=== PATIENT | male | born 1945 ===

== ENCOUNTER 2017-04-15 13:31 | Emergency (ER) | payer MEDICARE ==
[2017-04-15 14:35] VITALS: RESP 20; TEMP 97.4
--- NOTE | 2017-04-15 15:33 | C.PDOC ---
History Of Present Illness NEAR SYNCOPE VS VERTIGO-LIKE DIZZY X 2 WEEKS. WORSE WHEN MOVES FROM OUT OF BED TO STANDING. SAW PMD FOR SAME LAST WEEK, ADVISED "NOT TO GET UP SO FAST". SAW OPERATIONS MANAGER THIS WEEK, ADVISED TO DC NORVASC. COMPLIANT W DEMADEX, TOPROL. "HE SAID MY BP WAS LOWER THAN USUAL", PS DOESNT KNOW BASELINE BP. ALSO CO NEED TO HAVE BM IMMEDIATELY AFTER EATING X 2 WEEKS. NO DIARRHEA. NO ASSOC ABD PAIN, NV, WT LOSS EXAM NAD HEENT NO NYSTAGMUS ABD NEG GAIT STEADY TANDEM WALK. NEURO NO FOCAL DEF NO INDUCIBLE VERTIGO OR DIZZINESS W POSITION CHANGE CV RRR REMAINDER NEG Time Seen by Provider: 04/15/17 15:07 Chief Complaint (Nursing): Dizziness/Lightheaded History Per: Patient History/Exam Limitations: no limitations Onset/Duration Of Symptoms: Days Current Symptoms Are (Timing): Still Present Severity: Moderate Past Medical History Reviewed: Historical Data, Nursing Documentation, Vital Signs Vital Signs: Last Vital Signs Temp 97.4 F L 04/15/17 14:29 Pulse 73 04/15/17 14:29 Resp 20 04/15/17 14:29 BP 137/71 04/15/17 14:29 Pulse Ox 99 04/15/17 18:14 - Medical History PMH: Arthritis (right knee), Diabetes, Gastritis, HTN, Hypercholesterolemia, Chronic Kidney Disease Other Surgeries: Hx of surgeries - [facility] Procedures OTHER SKIN & SUBQ I D (11/21/13) Family History: States: No Known Family Hx - Social History Hx Tobacco Use: No Hx Alcohol Use: Yes Hx Substance Use: No - Immunization History Hx Tetanus Toxoid Vaccination: No Hx Influenza Vaccination: No Hx Pneumococcal Vaccination: Yes Review Of Systems Except As Marked, All Systems Reviewed And Found Negative. Constitutional: Negative for: Weight loss Gastrointestinal: Negative for: Nausea, Vomiting, Abdominal Pain, Diarrhea Neurological: Positive for: Dizziness Physical Exam - Physical Exam Appears: Non-toxic, No Acute Distress Skin: Normal Color, Warm Head: Atraumatic, Normacephalic Eye(s): bilateral: Normal Inspection, Other (no nystagmus) Cardiovascular: Other (RRR) Gastrointestinal/Abdominal: Normal Exam, Soft, No Tenderness, No Guarding, No Rebound Neurological/Psych: Other (no focal deficits, no inducible vertigo or dizziness with position change) Gait: Steady (tandem walk) ED Course And Treatment - Laboratory Results Result Diagrams: 04/15/17 16:43 04/15/17 16:43 O2 Sat by Pulse Oximetry: 99 (RA) Pulse Ox Interpretation: Normal - Radiology CXR: Interpreted by Me CXR Interpretation: Yes: No Acute Disease - CT Scan/US Head CT Other Rad Studies (CT/US): Read By Radiologist CT/US Interpretation: PROCEDURE: CT HEAD WITHOUT CONTRAST. HISTORY: DIZZY. COMPARISON: None available. TECHNIQUE: Axial computed tomography images were obtained through the head/brain without intravenous contrast. Radiation dose: Total exam DLP = 800.40 mGy-cm. This CT exam was performed using one or more of the following dose reduction techniques: Automated exposure control, adjustment of the mA and/or kV according to patient size, and/or use of iterative reconstruction technique. FINDINGS: HEMORRHAGE: No intracranial hemorrhage. BRAIN: Diffuse atrophy with prominence of the ventricles and sulci noted. No mass effect or edema. Intracranial atherosclerosis. Intracranial atherosclerosis. The knight-white matter differentiation appears intact. Please note that MRI with diffusion imaging is more sensitive in the detection of acute ischemic event. VENTRICLES: No hydrocephalus. CALVARIUM: Unremarkable. PARANASAL SINUSES: Unremarkable as visualized. No significant inflammatory changes. MASTOID AIR CELLS: Unremarkable as visualized. No inflammatory changes. OTHER FINDINGS: None. IMPRESSION: No acute intracranial pathology identified. Findings as above. Progress - Re-Evaluation Re-evaluation Note: 04/15/17 18:06 APPEARS COMFORTABLE NAD. PS WAS PREVIOUSLY ADVISED "MY KIDNEY NUMBERS ARE HIGH" . UNK PRIOR RESULT. ADVISED NEED TO DRINK 1-2 L WATER DAILY. AGREES W DC PLAN, DC HOME. 04/15/17 18:14 - Data Reviewed Data Reviewed: Lab, Diagnostic imaging, EKG, Old records Medical Decision Making Medical Decision Making: Plan: --Labs --UA --CXR --CT-Head Disposition Counseled Patient/Family Regarding: Studies Performed, Diagnosis, Need For Followup, Rx Given - Disposition Referrals: YOUR,PMD [Other] Disposition: HOME/ ROUTINE Disposition Time: 18:07 Condition: IMPROVED Prescriptions: Meclizine [Antivert] 50 mg PO Q6 #20 tab Instructions: Vertigo (a Type of Dizziness), Dehydration, Adult (DC) Forms: [employer] ([place] Citizen) - Clinical Impression Clinical Impression: Dizziness, Renal insufficiency - Scribe Statement The provider has reviewed the documentation as recorded by the Scribe Judy Walter Provider Attestation: All medical record entries made by the Scribe were at my direction and personally dictated by me. I have reviewed the chart and agree that the record accurately reflects my personal performance of the history, physical exam, medical decision making, and the department course for this patient. I have also personally directed, reviewed, and agree with the discharge instructions and disposition.
[2017-04-15 16:50] LABS: BASO # 0.1 K/uL (0.0-0.2); BASO % 0.6 % (0.0-2.0); EOS # 0.2 K/uL (0.0-0.7); EOS % 2.4 % (0.0-4.0); HEMOGLOBIN 13.6 g/dL (12.0-18.0); LYMPH # 1.6 K/uL (1.0-4.3); LYMPH % 15.4 % (20.0-40.0); MEAN CELL VOLUME 92.1 fL (80.0-94.0); MEAN CORPUSCULAR HEMOGLOBIN 31.5 pg (27.0-31.0); MEAN CORPUSCULAR HGB CONC 34.2 g/dL (33.0-37.0); MEAN PLATELET VOLUME 11.1 fL (7.2-11.7); MONO # 0.5 K/uL (0.0-0.8); MONO % 5.3 % (0.0-10.0); NEUT # 7.8 K/uL (1.8-7.0); NEUT % 76.3 % (50.0-75.0); NRBC % 0.1 % (0.0-2.0); RBC 4.33 Mil/uL (4.40-5.90); WHITE BLOOD COUNT 10.2 K/uL (4.8-10.8)
[2017-04-15 17:01] LABS: CALCIUM 9.4 mg/dl (8.6-10.4)
[2017-04-15 17:40] LABS: URINE BACTERIA RARE (<OCC); URINE BILIRUBIN NEGATIVE (NEGATIVE); URINE BLOOD NEGATIVE (NEGATIVE); URINE CLARITY Clear (Clear); URINE COLOR Straw (YELLOW); URINE GLUCOSE (UA) NORMAL (Normal); URINE LEUKOCYTE ESTERASE NEG Leu/uL (Negative); URINE NITRATE NEGATIVE (NEGATIVE); URINE PROTEIN 1+ mg/dL (NEGATIVE); URINE UROBILINOGEN NORMAL mg/dL (0.2-1.0)
--- NOTE | 2017-04-15 17:51 | CT ---
PROCEDURE: CT HEAD WITHOUT CONTRAST. HISTORY: DIZZY COMPARISON: None available. TECHNIQUE: Axial computed tomography images were obtained through the head/brain without intravenous contrast. Radiation dose: Total exam DLP = 800.40 mGy-cm. This CT exam was performed using one or more of the following dose reduction techniques: Automated exposure control, adjustment of the mA and/or kV according to patient size, and/or use of iterative reconstruction technique. FINDINGS: HEMORRHAGE: No intracranial hemorrhage. BRAIN: Diffuse atrophy with prominence of the ventricles and sulci noted. No mass effect or edema. Intracranial atherosclerosis. Intracranial atherosclerosis. The knight-white matter differentiation appears intact. Please note that MRI with diffusion imaging is more sensitive in the detection of acute ischemic event. VENTRICLES: No hydrocephalus. CALVARIUM: Unremarkable. PARANASAL SINUSES: Unremarkable as visualized. No significant inflammatory changes. MASTOID AIR CELLS: Unremarkable as visualized. No inflammatory changes. OTHER FINDINGS: None. IMPRESSION: No acute intracranial pathology identified. Findings as above.
[2017-04-15] MEDS ORDERED: Sodium Chloride 0.9% 500 ML IV ONE ×2 (18:14→18:17)
[2017-04-15 18:47] VITALS: BP 160/89; PULSE 71; O2SAT 100
--- NOTE | 2017-04-16 23:16 | CARD ---
APPROVED REPORT EKG Measurement Heart [id number] KS [id number] <Conclusion> Normal sinus rhythm Normal ECG
== END 2017-04-15 18:52 | disposition home or self-care (01) ==
LOC: C.ER 13:31
DX: R42 Dizziness and giddiness (principal); N28.9 Disorder of kidney and ureter, unspecified
CPT/HCPCS: 70450; 71046; 80048; 81001; 85025; 93005; 99285; J7040

== ENCOUNTER 2017-08-03 07:12 | Day surgery (SDC) | payer MEDICARE ==
[2017-07-29 12:16] VITALS: BMI 32.5
[2017-08-03] MEDS ORDERED: EPINEPHrine 1:1000 Nasal Sol(30mL) ONE (07:18)
[2017-08-03] MEDS ORDERED: Lidocaine/Epinephrine 1% 1:100000 10 ML IJ ONE (07:18)
[2017-08-03] MEDS ORDERED: ceFAZolin 1 gm in NS 1 GM/100 ML BAG IVPB ONE (07:19)
[2017-08-03] MEDS ORDERED: Propofol 10 mg/ml Inj (20 ML) ONE (08:33)
[2017-08-03] MEDS ORDERED: Midazolam 2 MG/2 ML VIAL ONE (08:34)
[2017-08-03] MEDS ORDERED: Lactated Ringer's 1,000 ML IV ONE (08:35)
[2017-08-03] MEDS ORDERED: Rocuronium 10 mg/ml (5 ml) ONE (09:44)
[2017-08-03] MEDS ORDERED: Neostigmine Methylsulfate 3mg/3ml Syringe IV ONE (09:44)
[2017-08-03] MEDS ORDERED: HYDROmorphone 0.5 mg/0.5 ml ISec IVP PRN (10:03)
[2017-08-03] MEDS ORDERED: Acetaminophen-Codeine 300/30 mg Tab PO PRN (10:41)
[2017-08-03] MEDS ORDERED: Dextrose 5%/0.45% NS 1,000 ML IV SCH (10:45)
[2017-08-03 12:01] VITALS: BP 125/64; PULSE 84; RESP 20; TEMP 97.8; O2SAT 97
--- NOTE | 2017-08-03 20:48 | OP ---
PROCEDURE DATE: 08/03/2017 PREOPERATIVE DIAGNOSIS: Sinusitis, enlarged turbinates. POSTOPERATIVE DIAGNOSIS: Sinusitis, enlarged turbinates. PROCEDURE: Endoscopic bilateral maxillary antrostomy, endoscopic bilateral ethmoidectomy, endoscopic bilateral inferior turbinate reduction, endoscopic right frontal sinusotomy. SIGNIFICANT FINDINGS: Sinusitis, changes in the ethmoid sinuses, the maxillary antrum stenosed on both sides, the frontal recess stenosed on both sides. DESCRIPTION OF PROCEDURE: The patient was brought into the room, placed in the supine position. Anesthesia was initiated through an ET tube. Adrenaline-soaked pledgets were inserted into the nasal cavity, remained there for at least 5 minutes and removed. A zero degree scope was inserted into the nasal cavity. The inferior turbinates were noted to be enlarged. They were reduced in size to confirm an inferior to superior, anterior to posterior direction on both sides, first on the left, then on the right. Bleeding was controlled using suction cautery on both sides. Attention was turned to the left. The middle turbinate was injected with lidocaine with epinephrine. At that point, navigation was set up and used throughout the case in order to ensure that the skull base and orbit were not entered. The middle turbinate was medialized. The uncinate process was medialized and removed. The ethmoid bulla was entered inferomedially going posteriorly to the basal lamella, then anteriorly and superiorly until the ethmoid bulla was removed. The basal lamella was entered, posterior ethmoid cells were entered and opened. The skull base was identified and followed anteriorly all the way to the area of the anterior ethmoid air cells. Curved suction hooked up to navigation was used to locate the maxillary antrum, which was noted to be stenosed and opened using forceps. Bleeding was controlled using suction cautery and adrenaline-soaked pledgets . Attention was turned to the other side. The middle turbinate was injected with lidocaine with epinephrine and medialized. The uncinate process was medialized using a freer elevator and removed using forceps. A debrider was used to enter the ethmoid bulla inferomedially going posteriorly to the basal lamella then anteriorly and superiorly until the ethmoid bulla was removed. The basal lamella was entered. Posterior ethmoid cells were entered and opened. Skull base was identified and followed anteriorly all the way to the area of the anterior ethmoid air cells. The frontal recess was noted to be stenosed and opened using forceps. The curved suction hooked up to navigation was used to locate the maxillary antrum, which was noted to be stenosed and opened using forceps. Bleeding was controlled using suction cautery and adrenaline-soaked pledgets. Splints were placed. The patient was taken off anesthesia and taken to the recovery room in a stable manner. Rogerio Ring MD
== END 2017-08-03 13:00 | disposition home or self-care (01) ==
LOC: C.SDS 07:12
PROVIDERS: ATTEND Otolaryngology
DX: J34.3 Hypertrophy of nasal turbinates (principal); J32.0 Chronic maxillary sinusitis; J32.1 Chronic frontal sinusitis; J32.2 Chronic ethmoidal sinusitis
CPT/HCPCS: 30802; 31254; 31256; 31276; 82948; 88304; J0690; J2001; J2250; J2405; J2704; J2710; J3010; J7120

== ENCOUNTER 2017-08-20 20:48 | Emergency (ER) | payer MEDICARE ==
[2017-08-20 20:49] VITALS: BMI 32.5
[2017-08-20 21:14] VITALS: RESP 20
--- NOTE | 2017-08-20 22:22 | C.PDOC ---
History Of Present Illness 72 year old male presents to the ED for evaluation of a nosebleed. Patient was seen at an outside Hospital for the same presentation yesterday. Patient is persistently clutching at his nose, rubbing it with scant bleeding observed. Patient denies fever, chills, headache, injury, fall, trauma, blurry vision, nausea, vomit, weakness, numbness. Time Seen by Provider: 08/20/17 21:12 Chief Complaint (Nursing): ENT Problem History Per: Patient History/Exam Limitations: None Onset/Duration Of Symptoms: Days Current Symptoms Are (Timing): Still Present Symptoms Have Been: Continuous Anticoagulant/Antiplatlet Use?: No Recent Aspirin Use: No Past Medical History Reviewed: Historical Data, Nursing Documentation, Vital Signs Vital Signs: Last Vital Signs Temp 98 F 08/20/17 22:46 Pulse 87 08/20/17 22:46 Resp 20 08/20/17 22:46 BP 156/70 H 08/20/17 22:46 Pulse Ox 98 08/20/17 22:46 - Medical History PMH: Arthritis (right knee), Diabetes, Gastritis, HTN, Hypercholesterolemia, Chronic Kidney Disease (renal insufficiency) Denies: Hepatitis, HIV, Seizures, Sexually Transmitted Disease Surgical History: Endoscopy - [facility] Procedures OTHER SKIN & SUBQ I D (11/21/13) Family History: States: Unknown Family Hx - Social History Hx Tobacco Use: No Hx Alcohol Use: Yes Hx Substance Use: No - Immunization History Hx Tetanus Toxoid Vaccination: No Hx Influenza Vaccination: No Hx Pneumococcal Vaccination: Yes Review Of Systems Constitutional: Negative for: Fever, Chills ENT: Positive for: Nose Discharge. Negative for: Nose Pain, Mouth Swelling, Throat Pain Cardiovascular: Negative for: Chest Pain Respiratory: Negative for: Cough, Shortness of Breath Gastrointestinal: Negative for: Nausea, Vomiting Skin: Negative for: Rash Neurological: Negative for: Headache, Dizziness Physical Exam - Physical Exam Appears: Non-toxic, No Acute Distress Skin: Normal Color, Warm, Dry Head: Atraumatic, Normacephalic Eye(s): bilateral: Normal Inspection, PERRL, EOMI Nose: No Tenderness, No Septal Hematoma, Other (scant blood on bilateral nares. no active bleeding seen) Oral Mucosa: Moist Neck: Normal ROM, Supple Chest: Symmetrical Cardiovascular: Rhythm Regular Respiratory: Normal Breath Sounds, No Rales, No Rhonchi, No Wheezing Gastrointestinal/Abdominal: Soft, No Tenderness, No Guarding, No Rebound Extremity: Normal ROM, No Tenderness, No Swelling Neurological/Psych: Oriented x3, Normal Speech Gait: Steady ED Course And Treatment O2 Sat by Pulse Oximetry: 99 (ON RA) Pulse Ox Interpretation: Normal Medical Decision Making Medical Decision Making: mild persistent epistaxis, pt with mild elev BP INCESSANTLY rubbing at nose and had to be redirected many times to stop rubbing nose. hemostasis achieved recurent bleeding prob related to digital manipulation and elev BP Disposition Doctor Will See Patient In The: Office Counseled Patient/Family Regarding: Studies Performed, Diagnosis - Disposition Referrals: [facility] [Outside] [facility] [Outside] [facility] [Outside] [facility] [Outside] Rogerio Ring MD [Staff Provider] - Disposition: HOME/ ROUTINE Disposition Time: 22:22 Condition: GOOD Additional Instructions: do not touch your nose tonight! Continue your normal blood pressure meds follow-up with your PMD or our nose specialist: Dr. Ring. Instructions: Nosebleeds Forms: [employer] (Estonian) - Clinical Impression Clinical Impression: Epistaxis - Scribe Statement The provider has reviewed the documentation as recorded by the Scribe Jim Birmingham All medical record entries made by the Scribe were at my direction and personally dictated by me. I have reviewed the chart and agree that the record accurately reflects my personal performance of the history, physical exam, medical decision making, and the department course for this patient. I have also personally directed, reviewed, and agree with the discharge instructions and disposition.
[2017-08-20 22:47] VITALS: BP 156/70; PULSE 87; TEMP 98
[2017-08-20 23:58] VITALS: O2SAT 99
== END 2017-08-20 22:47 | disposition home or self-care (01) ==
LOC: C.ER 20:48
DX: R04.0 Epistaxis (principal)

== ENCOUNTER 2017-08-22 08:26 | Inpatient (IN) | payer MEDICARE ==
[2017-08-22 08:27] VITALS: BMI 32.5
--- NOTE | 2017-08-22 09:50 | C.PDOC ---
History Of Present Illness 72 y/o male brought to ER by ambulance complaining of almost passing out at 3 am in the morning today. Patient states that he took his BP medication. However , he felt like he could not walk and ride a bicycle to a "breakfast place." Patient reports that he felt weak and dizzy so he called 911 after he found that his BP was low. Denies having CP and SOB. Time Seen by Provider: 08/22/17 09:29 Chief Complaint (Nursing): Dizziness/Lightheaded History Per: Patient History/Exam Limitations: no limitations Onset/Duration Of Symptoms: Hrs Current Symptoms Are (Timing): Still Present Severity: Moderate Past Medical History Reviewed: Historical Data, Nursing Documentation, Vital Signs Vital Signs: Last Vital Signs Temp 97.9 F 08/22/17 08:30 Pulse 66 08/22/17 08:30 Resp 20 08/22/17 08:30 BP 91/53 L 08/22/17 08:30 Pulse Ox 98 08/22/17 11:28 - Medical History PMH: Arthritis (right knee), Diabetes, Gastritis, HTN, Hypercholesterolemia, Chronic Kidney Disease (renal insufficiency) Denies: Hepatitis, HIV, Seizures, Sexually Transmitted Disease Surgical History: Endoscopy - [facility] Procedures OTHER SKIN & SUBQ I D (11/21/13) Family History: States: No Known Family Hx - Social History Hx Tobacco Use: No Hx Alcohol Use: Yes Hx Substance Use: No - Immunization History Hx Tetanus Toxoid Vaccination: No Hx Influenza Vaccination: No Hx Pneumococcal Vaccination: Yes Review Of Systems Except As Marked, All Systems Reviewed And Found Negative. Constitutional: Positive for: Weakness. Negative for: Fever, Chills Cardiovascular: Positive for: Light Headedness. Negative for: Chest Pain Respiratory: Negative for: Shortness of Breath Physical Exam - Physical Exam Appears: Non-toxic, No Acute Distress Skin: Normal Color, Warm, Dry Head: Atraumatic, Normacephalic Eye(s): bilateral: Normal Inspection Nose: Normal Oral Mucosa: Moist Neck: Supple Chest: Symmetrical Cardiovascular: Rhythm Regular Respiratory: Normal Breath Sounds, No Rales, No Rhonchi, No Wheezing Gastrointestinal/Abdominal: Normal Exam, Soft, No Tenderness, No Guarding, No Rebound Extremity: Normal ROM Neurological/Psych: Oriented x3, Normal Speech, Normal Motor (5/5 upper and lower bilateral extremities), Normal Sensation, Other ((-) protonator drift) ED Course And Treatment - Laboratory Results Result Diagrams: 08/22/17 10:01 08/22/17 10:01 ECG: Interpreted By Me, Viewed By Me ECG Rhythm: Sinus Rhythm Interpretation Of ECG: NSR with left axis deviation Rate From EC O2 Sat by Pulse Oximetry: 98 (RA) Pulse Ox Interpretation: Normal Medical Decision Making Medical Decision Making: Impression: Near Syncope, HTN Plan: --Labs --CXR --EKG Disposition - Disposition Disposition Time: 12:41 Condition: GOOD Forms: [facility] (Nepalese) - Clinical Impression Clinical Impression: Near syncope, Dehydration - Scribe Statement The provider has reviewed the documentation as recorded by the Carmeloibbryce Walter Provider Attestation: All medical record entries made by the Carmeloibe were at my direction and personally dictated by me. I have reviewed the chart and agree that the record accurately reflects my personal performance of the history, physical exam, medical decision making, and the department course for this patient. I have also personally directed, reviewed, and agree with the discharge instructions and disposition. Decision To Admit - Pt Status Changed To: Hospital Disposition Of: Inpatient - Admit Certification Admit to Inpatient:: After my assessment, the patient will require hospitalization for at least two midnights. This is because of the severity of symptoms shown, intensity of services needed, and/or the medical risk in this patient being treated as an outpatient. - InPatient: Physician Admission Certification: I certify that this patient requires 2 or more midnights of care for the following reason:: After my assessment, the patient will require hospitalization for at least two midnights. This is because of the severity of symptoms shown, intensity of services needed, and/or the medical risk in this patient being treated as an outpatient. - . Bed Request Type: Telemetry Patient Diagnosis: Near syncope
[2017-08-22 10:07] LABS: BASO # 0.1 K/uL (0.0-0.2); BASO % 0.6 % (0.0-2.0); EOS # 0.2 K/uL (0.0-0.7); EOS % 1.6 % (0.0-4.0); LYMPH # 1.2 K/uL (1.0-4.3); LYMPH % 9.5 % (20.0-40.0); MEAN CELL VOLUME 89.3 fL (80.0-94.0); MEAN CORPUSCULAR HEMOGLOBIN 30.4 pg (27.0-31.0); MEAN PLATELET VOLUME 11.2 fL (7.2-11.7); MONO # 0.9 K/uL (0.0-0.8); MONO % 7.6 % (0.0-10.0); NEUT # 9.9 K/uL (1.8-7.0); NEUT % 80.7 % (50.0-75.0); PLATELET COUNT 236 K/uL (130-400); RED CELL DISTRIBUTION WIDTH 12.7 % (11.5-14.5)
[2017-08-22 10:10] LABS: HEMOGLOBIN 12.1 g/dL (12.0-18.0); WHITE BLOOD COUNT 12.2 K/uL (4.8-10.8)
[2017-08-22 10:30] LABS: ALT/SGPT 32 U/L (21-72); AST/SGOT 50 U/L (17-59); BLOOD UREA NITROGEN 49 mg/dL (9-20); CALCIUM 8.8 mg/dl (8.6-10.4)
[2017-08-22 10:38] LABS: ALBUMIN 3.6 g/dL (3.5-5.0); GFR AFRICAN-AMERICAN 25; GFR NON-AFRICAN AMERICAN 21
[2017-08-22 10:39] LABS: ALB/GLOB RATIO 1.2 (1.0-2.1)
[2017-08-22 11:11] LABS: LYMPHOCYTE 11 % (20-40); TOTAL CELLS COUNTED 100
[2017-08-22 11:12] LABS: MONOCYTE 7 % (0-10); NEUTROPHIL 82 % (50-75); PLATELET ESTIMATE NORMAL (NORMAL)
--- NOTE | 2017-08-22 13:00 | RAD ---
PROCEDURE: CHEST RADIOGRAPH, 1 VIEW HISTORY: chest pain COMPARISON: 04/15/2017. FINDINGS: LUNGS: The lungs are clear. PLEURA: No pneumothorax or pleural fluid seen. CARDIOVASCULAR: Normal. OSSEOUS STRUCTURES: No significant abnormalities. VISUALIZED UPPER ABDOMEN: Normal. OTHER FINDINGS: None. IMPRESSION: No active pulmonary disease.
[2017-08-22 22:47] LABS: HDL CHOLESTEROL 39 mg/dL (30-70)
[2017-08-22 22:53] LABS: IRON 59 ug/dL (49-181)
[2017-08-22 22:57] LABS: LDL CHOLESTEROL 86 mg/dL (0-129)
[2017-08-22 22:58] LABS: CK-MB 5.59 ng/mL (0.0-3.38)
[2017-08-22 23:02] LABS: % IRON SATURATION 20 (20-55); TOTAL IRON BINDING CAPACITY 297 ug/dL (250-450)
[2017-08-22 23:52] LABS: FOLATE > 20.0 ng/mL
[2017-08-23 05:20] LABS: HEMOGLOBIN 13.5 g/dL (12.0-18.0); MEAN CELL VOLUME 90.2 fL (80.0-94.0); MEAN CORPUSCULAR HEMOGLOBIN 30.1 pg (27.0-31.0); MEAN CORPUSCULAR HGB CONC 33.3 g/dL (33.0-37.0); MEAN PLATELET VOLUME 10.5 fL (7.2-11.7); RBC 4.48 Mil/uL (4.40-5.90); RED CELL DISTRIBUTION WIDTH 12.4 % (11.5-14.5); WHITE BLOOD COUNT 9.5 K/uL (4.8-10.8)
[2017-08-23] MEDS: (Lantus) Insulin Glargine, Recombinant SC SCH (08:30)
[2017-08-23] MEDS: Pantoprazole 20 mg EC Tab PO SCH (09:30)
[2017-08-23] MEDS: Omega-3-Acid Ethyl Esters 1 GM Cap PO SCH ×2 (10:00→18:08)
[2017-08-23] MEDS ORDERED: Sodium Chloride 0.9% 1,000 ML IV SCH (14:45)
--- NOTE | 2017-08-23 15:31 | CON ---
DATE: 08/23/2017 CHIEF COMPLAINT: Dizziness. HISTORY OF PRESENT ILLNESS: This is a 72-year-old man with past medical history of right knee arthritis, history of chronic kidney disease, type 2 diabetes mellitus, gastritis, hypertension, hypercholesterolemia, who comes into the hospital feeling like he was going to pass out at 03:00 a.m. in the morning. He said he took his blood pressure medication, felt like he could not walk due to generalized weakness and dizziness and found out that his BP was low at home and therefore he came to the hospital for further evaluation where his blood pressure was measured as 91/53. He has a hemoglobin A1c of 7.5 and elevated BUN and creatinine, mild dehydration from his underlying baseline. There is no focal weakness on extremities. He had a blood sugar level of 72, which is also low for him when he came in. He had a CAT scan of the head on 08/12/2017, which showed ethmoid sinusitis, but no acute intracranial abnormalities. REVIEW OF SYSTEMS: A 14-point review of systems negative except in the HPI. PAST MEDICAL HISTORY: As above. SOCIAL HISTORY: No illicit drug abuse, smoking, or EtOH abuse. ALLERGIES: NO KNOWN DRUG ALLERGIES. MEDICATIONS: Reviewed by nurse reconciliation sheet. LABORATORY DATA: Sodium is 139, potassium 3.9, chloride 109, carbon dioxide 18, BUN of 49, creatinine 2.6, random glucose of 125, A1c 7.5. His C. diff antigen toxin positive on 08/23/2017. PHYSICAL EXAMINATION: VITAL SIGNS: Temperature 97.5, pulse rate 74, blood pressure 109/55, respiratory rate 16, oxygen saturation 97% via room air. GENERAL: The patient is sitting up in bed, in no acute distress. HEENT: Atraumatic, normocephalic. PERRLA. Extraocular muscles are intact. NECK: Supple. No JVD. No adenopathy noted. LUNGS: Clear to auscultation. No adventitious sounds. HEART: S1 and S2. Normal rate and rhythm. No murmur, rubs, or gallops. ABDOMEN: Soft, nontender, nondistended. Bowel sounds are present. EXTREMITIES: No clubbing. No cyanosis. Peripheral pulses are 2+ bilaterally. NEUROLOGIC: The patient is alert and oriented to person, place, month, and year. Speech is fluent without any errors. Cranial nerves II through XII are intact. Poor attention span. Slow thought process. Motor exam: Moves all extremities equally. No pronator is seen. Sensory exam: Decreased to light touch and pinprick up to the calves bilaterally. Decreased vibration at the toes. DTRs are 2+ throughout, 1 at both knees and ankles. Coordination: [id number] intact. No dysmetria noted. ASSESSMENT AND PLAN: This is a 72-year-old man with history of type 2 diabetes mellitus, hypertension, dyslipidemia, right knee arthritis, who presented with dizziness and felt like he was going to pass out. He had low systolic and diastolic blood pressures, elevated BUN and creatinine from his baseline, underlying chronic kidney disease, he has a positive Clostridium difficile toxin seen today. His CAT of the head showed no acute intracranial abnormalities on 08/12/2017, just chronic ethmoid sinusitis. At this time, his near syncope is secondary to underlying transient cerebral hypoperfusion to the brain from low blood pressure superimposed on dehydration as well as low blood sugars of 71, which is measured low for him. RECOMMENDATION: At this time, I recommend: 1. Keep his systolic blood pressure between 130s to 140s and diastolic 70s to 80s. 2. Keep his blood sugars between 140s to 180s and avoid hypoglycemic events. 3. Follow up with nephrology in regards to his chronic kidney disease and continue with some IV hydration. 4. PT/OT evaluation since he has some mild evidence of diabetic peripheral neuropathy and continue . Thank you for this consult. Tyrone Hays MD
--- NOTE | 2017-08-23 16:05 | CP.PCM.CON ---
History of Present Illness - History of Present Illness History of Present Illness: Renal Note pt says he follows up with Dr Mitch Meyer was informed about patient will sign off and defer further management to Dr Meyer Thanks Dr Tyrell Negro Past Patient History - Infectious Disease Hx of Infectious Diseases: None - Past Medical History & Family History Past Medical History?: Yes - Past Social History Smoking Status: Never Smoked - CARDIAC Hx Hypercholesterolemia: Yes Hx Hypertension: Yes - PULMONARY Hx Tuberculosis: No - NEUROLOGICAL Hx Seizures: No - HEENT Hx HEENT Problems: Yes (Nasal surgery) Hx Cataracts: Yes (cataract surgery) - RENAL Hx Chronic Kidney Disease: Yes (renal insufficiency) - ENDOCRINE/METABOLIC Hx Endocrine Disorders: Yes Hx Diabetes Mellitus Type 1: Yes - HEMATOLOGICAL/ONCOLOGICAL Hx Human Immunodeficiency Virus (HIV): No - INTEGUMENTARY Hx Dermatological Problems: No - MUSCULOSKELETAL/RHEUMATOLOGICAL Hx Arthritis: Yes - GASTROINTESTINAL Hx Gastritis: Yes - GENITOURINARY/GYNECOLOGICAL Hx Sexually Transmitted Disorders: No - PSYCHIATRIC Hx Substance Use: No - SURGICAL HISTORY Hx Eye Surgery: Yes - ANESTHESIA Hx Anesthesia: Yes Hx Anesthesia Reactions: No Hx Malignant Hyperthermia: No Meds Allergies/Adverse Reactions: Allergies Allergy/AdvReac Type Severity Reaction Status Date / Time No Known Allergies Allergy Verified 08/20/17 21:14 - Medications Medications: Current Medications Acetaminophen (Tylenol 325mg Tab) 650 mg PO Q4H PRN PRN Reason: pain fever Heparin Sodium (Porcine) (Heparin) 5,000 units SC Q12 [facility] Last Admin: 08/23/17 09:30 Dose: 5,000 units Insulin Glargine (Lantus) 20 unit SC ACB [facility] Last Admin: 08/23/17 08:30 Dose: Not Given Fulzt-2-Ypyl Ethyl Esters (Lovaza) 1 gm PO BID [facility] Pantoprazole Sodium (Protonix Ec Tab) 20 mg PO DAILY [facility] Last Admin: 08/23/17 09:30 Dose: 20 mg Risperidone (Risperdal Tab) 3 mg PO DAILY [facility] Last Admin: 08/23/17 09:30 Dose: 3 mg Rosuvastatin Calcium (Crestor) 2.5 mg PO HS [facility] Tamsulosin HCl (Flomax) 0.4 mg PO DAILY [facility] Last Admin: 08/23/17 09:30 Dose: 0.4 mg Vancomycin HCl (Vancocin (Oral Or Rectal Use)) 250 mg PO QID [facility] PRN Reason: Protocol Results - Vital Signs Recent Vital Signs: Last Vital Signs Temp 97.5 F L 08/23/17 12:00 Pulse 78 08/23/17 12:00 Resp 18 08/23/17 12:00 BP 131/81 08/23/17 12:00 Pulse Ox 95 08/23/17 12:21 - Labs Result Diagrams: 08/23/17 05:17 08/23/17 05:17 Labs: Laboratory Results - last 24 hr 08/22/17 08/22/17 08/22/17 22:31 22:33 22:33 WBC RBC Hgb Hct MCV MCH MCHC RDW Plt Count MPV Sodium Potassium Chloride Carbon Dioxide Anion Gap BUN Creatinine Est GFR ( Amer) Est GFR (Non-Af Amer) POC Glucose (mg/dL) 155 H Random Glucose Hemoglobin A1c 7.5 H Calcium Iron 59 TIBC 297 % Saturation 20 Total Creatine Kinase CK-MB (Mass) Troponin I Triglycerides Cholesterol LDL Cholesterol Direct HDL Cholesterol Vitamin B12 Folate TSH 3rd Generation C. difficile Ag & Toxin 08/22/17 08/23/17 08/23/17 22:33 05:17 05:17 WBC 9.5 RBC 4.48 Hgb 13.5 Hct 40.4 MCV 90.2 MCH 30.1 MCHC 33.3 RDW 12.4 Plt Count 227 MPV 10.5 Sodium 139 Potassium 3.9 Chloride 109 H Carbon Dioxide 18 L Anion Gap 15 BUN 49 H Creatinine 2.6 H Est GFR ( Amer) 30 Est GFR (Non-Af Amer) 25 POC Glucose (mg/dL) Random Glucose 125 H Hemoglobin A1c Calcium 9.0 Iron TIBC % Saturation Total Creatine Kinase 622 H CK-MB (Mass) 5.59 H Troponin I < 0.0120 Triglycerides 118 Cholesterol 154 LDL Cholesterol Direct 86 HDL Cholesterol 39 Vitamin B12 881 Folate > 20.0 TSH 3rd Generation 1.11 C. difficile Ag & Toxin 08/23/17 08/23/17 08/23/17 06:25 07:43 11:45 WBC RBC Hgb Hct MCV MCH MCHC RDW Plt Count MPV Sodium Potassium Chloride Carbon Dioxide Anion Gap BUN Creatinine Est GFR ( Amer) Est GFR (Non-Af Amer) POC Glucose (mg/dL) 115 H 181 H Random Glucose Hemoglobin A1c Calcium Iron TIBC % Saturation Total Creatine Kinase CK-MB (Mass) Troponin I Triglycerides Cholesterol LDL Cholesterol Direct HDL Cholesterol Vitamin B12 Folate TSH 3rd Generation C. difficile Ag & Toxin Positive H
--- NOTE | 2017-08-23 16:11 | US ---
Renal ultrasound History: Acute renal insufficiency. Comparison: None available. Technique: Real-time sonography was performed through the kidneys and urinary bladder. Findings: Right kidney: 11.6 x 4.8 x 4.9 centimeters. Increased echogenicity of the renal parenchymal cortex suggestive for medical renal disease. No calculi or hydronephrosis. Left Kidney: 10.9 x 5.9 x 6.0 centimeters. Increased echogenicity of the renal parenchymal cortex suggestive for medical renal disease. No calculi or hydronephrosis. Underdistended urinary bladder limits evaluation. Patient voided prior to the examination. Postvoid residual of 43 cc. Visualized aorta grossly preserved. Impression: Increased echogenicity of the bilateral renal parenchymal cortices suggestive for medical renal disease. Clinical correlation. 43 cc postvoid residual in the urinary bladder.
--- NOTE | 2017-08-23 17:57 | CP.PCM.CON ---
History of Present Illness - History of Present Illness History of Present Illness: INFECTIOUS DISEASE CONSULT DICTATED: DICT NO. :-#[id number]; IMPRESSION: .PSEUDOMEMBRANOUS COLITIS ( +VE STOOL C DIFFICILE TOXIN ) .NEAR SYNCOPY -HYPOTENSION,DEHYDRATION, VASOVAGAL. .RENAL INSUFFICINCY/ON CRF. . DM -2 . HTN . HYPERCHOLESTRLEMIA . RECENT (ENT -SINUS SURGERY -3WKS AGO -ON ABX ) PLAN ; SEE ORDER SHEET. START PO VANCOMYCIN 250MG QID .08/23/17. IV FLUIDS. RENAL EVALUATION IN PROGRESS. ENTERIC/CONTACT PRECAUTIONS. WILL F/U WITH YOU . SCOUT. Past Patient History - Infectious Disease Hx of Infectious Diseases: None - Past Medical History & Family History Past Medical History?: Yes - Past Social History Smoking Status: Never Smoked - CARDIAC Hx Hypercholesterolemia: Yes Hx Hypertension: Yes - PULMONARY Hx Tuberculosis: No - NEUROLOGICAL Hx Seizures: No - HEENT Hx HEENT Problems: Yes (Nasal surgery) Hx Cataracts: Yes (cataract surgery) - RENAL Hx Chronic Kidney Disease: Yes (renal insufficiency) - ENDOCRINE/METABOLIC Hx Endocrine Disorders: Yes Hx Diabetes Mellitus Type 1: Yes - HEMATOLOGICAL/ONCOLOGICAL Hx Human Immunodeficiency Virus (HIV): No - INTEGUMENTARY Hx Dermatological Problems: No - MUSCULOSKELETAL/RHEUMATOLOGICAL Hx Arthritis: Yes - GASTROINTESTINAL Hx Gastritis: Yes - GENITOURINARY/GYNECOLOGICAL Hx Sexually Transmitted Disorders: No - PSYCHIATRIC Hx Substance Use: No - SURGICAL HISTORY Hx Eye Surgery: Yes - ANESTHESIA Hx Anesthesia: Yes Hx Anesthesia Reactions: No Hx Malignant Hyperthermia: No Meds Allergies/Adverse Reactions: Allergies Allergy/AdvReac Type Severity Reaction Status Date / Time No Known Allergies Allergy Verified 08/20/17 21:14 - Medications Medications: Current Medications Acetaminophen (Tylenol 325mg Tab) 650 mg PO Q4H PRN PRN Reason: pain fever Heparin Sodium (Porcine) (Heparin) 5,000 units SC Q12 [facility] Last Admin: 08/23/17 09:30 Dose: 5,000 units Insulin Glargine (Lantus) 20 unit SC ACB [facility] Last Admin: 08/23/17 08:30 Dose: Not Given Bnndj-5-Zukm Ethyl Esters (Lovaza) 1 gm PO BID [facility] Pantoprazole Sodium (Protonix Ec Tab) 20 mg PO DAILY [facility] Last Admin: 08/23/17 09:30 Dose: 20 mg Risperidone (Risperdal Tab) 3 mg PO DAILY [facility] Last Admin: 08/23/17 09:30 Dose: 3 mg Rosuvastatin Calcium (Crestor) 2.[address] [facility] Tamsulosin HCl (Flomax) 0.4 mg PO DAILY [facility] Last Admin: 08/23/17 09:30 Dose: 0.4 mg Vancomycin HCl (Vancocin (Oral Or Rectal Use)) 250 mg PO QID [facility] PRN Reason: Protocol Results - Vital Signs Recent Vital Signs: Last Vital Signs Temp 97.5 F L 08/23/17 12:00 Pulse 93 H 08/23/17 16:00 Resp 19 08/23/17 16:00 BP 129/58 L 08/23/17 16:00 Pulse Ox 95 08/23/17 16:00 - Labs Result Diagrams: 08/23/17 05:17 08/23/17 05:17 Labs: Laboratory Results - last 24 hr 08/22/17 08/22/17 08/22/17 22:31 22:33 22:33 WBC RBC Hgb Hct MCV MCH MCHC RDW Plt Count MPV Sodium Potassium Chloride Carbon Dioxide Anion Gap BUN Creatinine Est GFR ( Amer) Est GFR (Non-Af Amer) POC Glucose (mg/dL) 155 H Random Glucose Hemoglobin A1c 7.5 H Calcium Iron 59 TIBC 297 % Saturation 20 Total Creatine Kinase CK-MB (Mass) Troponin I Triglycerides Cholesterol LDL Cholesterol Direct HDL Cholesterol Vitamin B12 Folate TSH 3rd Generation C. difficile Ag & Toxin 08/22/17 08/23/17 08/23/17 22:33 05:17 05:17 WBC 9.5 RBC 4.48 Hgb 13.5 Hct 40.4 MCV 90.2 MCH 30.1 MCHC 33.3 RDW 12.4 Plt Count 227 MPV 10.5 Sodium 139 Potassium 3.9 Chloride 109 H Carbon Dioxide 18 L Anion Gap 15 BUN 49 H Creatinine 2.6 H Est GFR ( Amer) 30 Est GFR (Non-Af Amer) 25 POC Glucose (mg/dL) Random Glucose 125 H Hemoglobin A1c Calcium 9.0 Iron TIBC % Saturation Total Creatine Kinase 622 H CK-MB (Mass) 5.59 H Troponin I < 0.0120 Triglycerides 118 Cholesterol 154 LDL Cholesterol Direct 86 HDL Cholesterol 39 Vitamin B12 881 Folate > 20.0 TSH 3rd Generation 1.11 C. difficile Ag & Toxin 08/23/17 08/23/17 08/23/17 06:25 07:43 11:45 WBC RBC Hgb Hct MCV MCH MCHC RDW Plt Count MPV Sodium Potassium Chloride Carbon Dioxide Anion Gap BUN Creatinine Est GFR ( Amer) Est GFR (Non-Af Amer) POC Glucose (mg/dL) 115 H 181 H Random Glucose Hemoglobin A1c Calcium Iron TIBC % Saturation Total Creatine Kinase CK-MB (Mass) Troponin I Triglycerides Cholesterol LDL Cholesterol Direct HDL Cholesterol Vitamin B12 Folate TSH 3rd Generation C. difficile Ag & Toxin Positive H 08/23/17 16:42 WBC RBC Hgb Hct MCV MCH MCHC RDW Plt Count MPV Sodium Potassium Chloride Carbon Dioxide Anion Gap BUN Creatinine Est GFR ( Amer) Est GFR (Non-Af Amer) POC Glucose (mg/dL) 170 H Random Glucose Hemoglobin A1c Calcium Iron TIBC % Saturation Total Creatine Kinase CK-MB (Mass) Troponin I Triglycerides Cholesterol LDL Cholesterol Direct HDL Cholesterol Vitamin B12 Folate TSH 3rd Generation C. difficile Ag & Toxin
[2017-08-23] MEDS: Vancomycin 125 MG/5 ML SOLN (ORAL/RECTAL) PO SCH ×2 (18:08→21:32)
[2017-08-23] MEDS: Rosuvastatin Calcium 2.5 mg Tab PO SCH (21:32)
[2017-08-23 23:06] LABS: SQUAMOUS EPITHIAL < 1 /hpf (0-5); URINE BILIRUBIN NEGATIVE (NEGATIVE); URINE BLOOD NEGATIVE (NEGATIVE); URINE CLARITY Clear (Clear); URINE COLOR Straw (YELLOW); URINE GLUCOSE (UA) 1+ mg/dL (Normal); URINE LEUKOCYTE ESTERASE NEG Leu/uL (Negative); URINE PROTEIN 2+ mg/dL (NEGATIVE); URINE UROBILINOGEN NORMAL mg/dL (0.2-1.0)
--- NOTE | 2017-08-23 23:58 | CP.PCM.CON ---
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 CAME IN WITH NEAR SYNCOPY AND HYPOTENSION BP 95/ 47 .. PROBABLY 2/2 C DIFF CO;ITIS HAD SINUS SURGERY 2 WEEKS AGO AND RECIEVED PO ANTIBIOTIC .. DEVELOPPED C DIFF COLITIS History Of Present Illness 72 y/o male brought to ER by ambulance complaining of almost passing out at 3 am in the morning today. Patient states that he took his BP medication. However , he felt like he could not walk and ride a bicycle to a "breakfast place." Patient reports that he felt weak and dizzy so he called 911 after he found that his BP was low. Denies having CP and SOB. Time Seen by Provider: 08/22/17 09:29 Chief Complaint (Nursing): Dizziness/Lightheaded History Per: Patient History/Exam Limitations: no limitations Onset/Duration Of Symptoms: Hrs Current Symptoms Are (Timing): Still Present Severity: Moderate Past Medical History Reviewed: Historical Data, Nursing Documentation, Vital Signs Vital Signs: Last Vital Signs Temp 97.9 F 08/22/17 08:30 Pulse 66 08/22/17 08:30 Resp 20 08/22/17 08:30 BP 91/53 L 08/22/17 08:30 Pulse Ox 98 08/22/17 11:28 - Medical History PMH: Arthritis (right knee), Diabetes, Gastritis, HTN, Hypercholesterolemia, Chronic Kidney Disease (renal insufficiency) Denies: Hepatitis, HIV, Seizures, Sexually Transmitted Disease Surgical History: Endoscopy - [facility] Procedures OTHER SKIN & SUBQ I D (11/21/13) Family History: States: No Known Family Hx - Social History Hx Tobacco Use: No Hx Alcohol Use: Yes Hx Substance Use: No - Immunization History Hx Tetanus Toxoid Vaccination: No Hx Influenza Vaccination: No Hx Pneumococcal Vaccination: Yes Review Of Systems Except As Marked, All Systems Reviewed And Found Negative. Constitutional: Positive for: Weakness. Negative for: Fever, Chills Cardiovascular: Positive for: Light Headedness. Negative for: Chest Pain Respiratory: Negative for: Shortness of Breath Physical Exam - Physical Exam Appears: Non-toxic, No Acute Distress Skin: Normal Color, Warm, Dry Head: Atraumatic, Normacephalic Eye(s): bilateral: Normal Inspection Nose: Normal Oral Mucosa: Moist Neck: Supple Chest: Symmetrical Cardiovascular: Rhythm Regular Respiratory: Normal Breath Sounds, No Rales, No Rhonchi, No Wheezing Gastrointestinal/Abdominal: Normal Exam, Soft, No Tenderness, No Guarding, No Rebound Extremity: Normal ROM Neurological/Psych: Oriented x3, Normal Speech, Normal Motor (5/5 upper and lower bilateral extremities), Normal Sensation, Other ((-) protonator drift) Past Patient History - Infectious Disease Hx of Infectious Diseases: None - Past Medical History & Family History Past Medical History?: Yes - Past Social History Smoking Status: Never Smoked - CARDIAC Hx Hypercholesterolemia: Yes Hx Hypertension: Yes - PULMONARY Hx Tuberculosis: No - NEUROLOGICAL Hx Seizures: No - HEENT Hx HEENT Problems: Yes (Nasal surgery) Hx Cataracts: Yes (cataract surgery) - RENAL Hx Chronic Kidney Disease: Yes (renal insufficiency) - ENDOCRINE/METABOLIC Hx Endocrine Disorders: Yes Hx Diabetes Mellitus Type 1: Yes - HEMATOLOGICAL/ONCOLOGICAL Hx Human Immunodeficiency Virus (HIV): No - INTEGUMENTARY Hx Dermatological Problems: No - MUSCULOSKELETAL/RHEUMATOLOGICAL Hx Arthritis: Yes - GASTROINTESTINAL Hx Gastritis: Yes - GENITOURINARY/GYNECOLOGICAL Hx Sexually Transmitted Disorders: No - PSYCHIATRIC Hx Substance Use: No - SURGICAL HISTORY Hx Eye Surgery: Yes - ANESTHESIA Hx Anesthesia: Yes Hx Anesthesia Reactions: No Hx Malignant Hyperthermia: No Meds Allergies/Adverse Reactions: Allergies Allergy/AdvReac Type Severity Reaction Status Date / Time No Known Allergies Allergy Verified 08/20/17 21:14 - Medications Medications: Current Medications Acetaminophen (Tylenol 325mg Tab) 650 mg PO Q4H PRN PRN Reason: pain fever Heparin Sodium (Porcine) (Heparin) 5,000 units SC Q12 [facility] Last Admin: 08/23/17 21:32 Dose: 5,000 units Insulin Glargine (Lantus) 20 unit SC ACB [facility] Last Admin: 08/23/17 08:30 Dose: Not Given Uaxhs-6-Pzwr Ethyl Esters (Lovaza) 1 gm PO BID [facility] Last Admin: 08/23/17 18:08 Dose: 1 gm Pantoprazole Sodium (Protonix Ec Tab) 20 mg PO DAILY [facility] Last Admin: 08/23/17 09:30 Dose: 20 mg Risperidone (Risperdal Tab) 3 mg PO DAILY [facility] Last Admin: 08/23/17 09:30 Dose: 3 mg Rosuvastatin Calcium (Crestor) 2.5 mg PO HS [facility] Last Admin: 08/23/17 21:32 Dose: 2.5 mg Tamsulosin HCl (Flomax) 0.4 mg PO DAILY [facility] Last Admin: 08/23/17 09:30 Dose: 0.4 mg Vancomycin HCl (Vancocin (Oral Or Rectal Use)) 250 mg PO QID [facility] PRN Reason: Protocol Last Admin: 08/23/17 21:32 Dose: 250 mg Results - Vital Signs Recent Vital Signs: Last Vital Signs Temp 98.8 F 08/23/17 20:00 Pulse 83 08/23/17 18:00 Resp 19 08/23/17 16:00 BP 129/58 L 08/23/17 16:00 Pulse Ox 95 08/23/17 16:00 - Labs Result Diagrams: 08/23/17 05:17 08/23/17 05:17 Labs: Laboratory Results - last 24 hr 08/22/17 08/23/17 08/23/17 22:33 05:17 05:17 WBC 9.5 RBC 4.48 Hgb 13.5 Hct 40.4 MCV 90.2 MCH 30.1 MCHC 33.3 RDW 12.4 Plt Count 227 MPV 10.5 Sodium 139 Potassium 3.9 Chloride 109 H Carbon Dioxide 18 L Anion Gap 15 BUN 49 H Creatinine 2.6 H Est GFR ( Amer) 30 Est GFR (Non-Af Amer) 25 POC Glucose (mg/dL) Random Glucose 125 H Hemoglobin A1c 7.5 H Calcium 9.0 TSH 3rd Generation 1.11 Urine Color Urine Clarity Urine pH Ur Specific Buhl Urine Protein Urine Glucose (UA) Urine Ketones Urine Blood Urine Nitrate Urine Bilirubin Urine Urobilinogen Ur Leukocyte Esterase Urine WBC (Auto) Urine RBC (Auto) Ur Squamous Epith Cells C. difficile Ag & Toxin 08/23/17 08/23/17 08/23/17 06:25 07:43 11:45 WBC RBC Hgb Hct MCV MCH MCHC RDW Plt Count MPV Sodium Potassium Chloride Carbon Dioxide Anion Gap BUN Creatinine Est GFR ( Amer) Est GFR (Non-Af Amer) POC Glucose (mg/dL) 115 H 181 H Random Glucose Hemoglobin A1c Calcium TSH 3rd Generation Urine Color Urine Clarity Urine pH Ur Specific B[place]l Urine Protein Urine Glucose (UA) Urine Ketones Urine Blood Urine Nitrate Urine Bilirubin Urine Urobilinogen Ur Leukocyte Esterase Urine WBC (Auto) Urine RBC (Auto) Ur Squamous Epith Cells C. difficile Ag & Toxin Positive H 08/23/17 08/23/17 08/23/17 16:42 21:11 22:59 WBC RBC Hgb Hct MCV MCH MCHC RDW Plt Count MPV Sodium Potassium Chloride Carbon Dioxide Anion Gap BUN Creatinine Est GFR ( Amer) Est GFR (Non-Af Amer) POC Glucose (mg/dL) 170 H 189 H Random Glucose Hemoglobin A1c Calcium TSH 3rd Generation Urine Color Straw Urine Clarity Clear Urine pH 5.0 Ur Specific Buhl 1.009 Urine Protein 2+ H Urine Glucose (UA) 1+ H Urine Ketones Negative Urine Blood Negative Urine Nitrate Negative Urine Bilirubin Negative Urine Urobilinogen Normal Ur Leukocyte Esterase Neg Urine WBC (Auto) < 1 Urine RBC (Auto) < 1 Ur Squamous Epith Cells < 1 C. difficile Ag & Toxin Assessment & Plan - Assessment and Plan (Free Text) Assessment: CKD .. RENAL FUNCTION AT BASELINE .. STABLE C DIFF COLITIS .. ON IVF AND PO TEREZAO DUNIA P : C/O CURRENT MEDS C/O PRESENT MANAGEENT CHECK VIT D AND PHOS AND MAG RENAL AND DIABETIC DIET THX .. WILL F/U CLOSELY - Date & Time Date: 08/23/17 Time: 16:00
--- NOTE | 2017-08-24 04:50 | CON ---
DATE: 08/23/2017 INFECTIOUS DISEASE CONSULTATION REQUESTED BY: Alexandra Villaseñor MD REASON FOR CONSULTATION: Stool Clostridium difficile positive. The patient with syncope and dehydration. HISTORY OF PRESENT ILLNESS: A 72-year-old male with multiple medical problems including diabetes mellitus type 2, gastritis, hypertension, hypercholesterolemia, arthritis of right knee, chronic kidney disease with renal insufficiency who was admitted on 08/22/2017 as he was brought in by ambulance, complaining of almost passing out at 3 a.m. in the morning. The patient states that he took his blood pressure medication, but he felt he could not walk or ride a bicycle , so he felt weak and dizzy, and he called 911 after he found that his blood pressure was low. The patient denied having chest pain or shortness of breath. On admission, the patient was found to have elevated WBC of 12.2. Also, he was complaining of diarrhea off and on for the past 3-5 days. Denied any nausea or vomiting. Did complain of some mild cramping abdominal pain, but presently denies it. Stool Clostridium difficile was sent, which came back positive. Infectious disease consultation therefore was requested by Dr. Villaseñor for the above reason. The patient relates recent intake of antibiotics about three weeks ago when he had sinus surgery at [facility]. After that, he was well and was sent home. He denies diarrhea at that time. He lately developed diarrhea as he states that after taking his blood pressure pills, he felt very weak and also he was having diarrhea which probably could have been the cause of dizziness and weakness. The patient denies any headaches. He denies any sinus discharge. The patient denies any seizure disorder. Does complain of dizziness and lightheadedness. PAST MEDICAL HISTORY: As above, arthritis of right knee, diabetes, gastritis, hypertension, hypercholesterolemia, chronic kidney disease, and renal insufficiency. Denies any history of HIV, hepatitis, seizure disorder, sexually transmitted diseases. SURGICAL HISTORY: Only endoscopy. FAMILY HISTORY: Unremarkable. Denies any family history of TB or hepatitis or any other complaints. SOCIAL HISTORY: Denies use of tobacco or alcohol abuse. Denies any substance abuse. States he used to drink before, but has quit drinking, only occasionally a beer or two on weekends. IMMUNIZATION HISTORY: The patient is up-to-date on pneumococcal vaccination. Denies influenza vaccination or recent tetanus toxoid. REVIEW OF SYSTEMS: RESPIRATORY: Denies any cough or shortness of breath. CARDIOVASCULAR: Denies any chest pain or palpitations. GASTROINTESTINAL: Does have symptoms of diarrhea, loose BMs. Denies any nausea or vomiting. Occasional abdominal cramps. GENITOURINARY: Unremarkable. Denies any dysuria or hematuria. CENTRAL NERVOUS SYSTEM: No headaches, no seizures except for lightheadedness, dizziness and weakness. PHYSICAL EXAMINATION: GENERAL: The patient is awake and alert, not in any acute distress. VITAL SIGNS: Blood pressure presently 91/53, respirations are 20, pulse of 66, T-Max of 97.9, pulse oximetry 98%. HEENT: Pupils are equal and reactive to light and accommodation. Extraocular movements full. Fundus negative. Sclerae nonicteric. Conjunctivae normal. JVP not elevated. NECK: Appears to be supple. No lymphadenopathy appreciated. No sinus tenderness. LUNGS: Fair air entry. CARDIOVASCULAR: S1, S2. No murmur or gallop. ABDOMEN: Soft. Bowel sounds are present. Minimal tenderness on deep palpation, left lower quadrant. No guarding or rebound. EXTREMITIES: No cyanosis, clubbing or edema. CENTRAL NERVOUS SYSTEM: No gross deficits. Normal speech. Normal motor function, 5/5 in upper and lower bilateral extremities. Normal sensation. LABORATORY DATA: WBCs on admission 12.2, presently 9.5; hemoglobin 13.5; hematocrit 40.4; platelets 227. Liver function tests normal. Chest x-ray on admission with no active disease. Bladder ultrasound done today shows increased echogenicity with bilateral renal parenchymal changes consistent with chronic renal disease. Creatinine of 2.6, BUN of 14, CK is 622 elevated, CK MB of 5.59 elevated. Stool Clostridium difficile positive. IMPRESSION: 1. Pseudomembranous colitis with positive Clostridium difficile toxins as reported recent course of antibiotics three weeks ago for sinus surgery. 2. Near syncope episode, etiology question of dehydration, vasovagal. Rule out cardiac arrhythmias unlikely at present. 3. Diabetes mellitus type 2. 4. Hypertension. 5. Hypercholesterolemia, 6. Gastritis. RECOMMENDATIONS: Suggest marie cultures, blood cultures x2, MRSA screen, ESR, CRP. P.o. vancomycin to be initiated 250 mg four times a day. For now, the patient is with IV fluids as per manager combination. The patient is on telemetry to monitor his tachycardia or arrhythmias. Presently encourage precautions for now with hand washing because of Clostridium difficile toxin. We will follow along with you and make further recommendations as needed. Thank you very much for allowing me to participate in the care of your patient. Shantell Carbajal MD
[2017-08-24] MEDS: (Lantus) Insulin Glargine, Recombinant SC SCH (08:07)
[2017-08-24] MEDS: Multivitamin Vitamin B Complex (Nephro-Vite) Tab PO SCH (08:09)
[2017-08-24] MEDS: Pantoprazole 20 mg EC Tab PO SCH (09:01)
[2017-08-24] MEDS: Omega-3-Acid Ethyl Esters 1 GM Cap PO SCH ×2 (09:01→17:06)
[2017-08-24] MEDS: Vancomycin 125 MG/5 ML SOLN (ORAL/RECTAL) PO SCH ×4 (09:04→21:31)
--- NOTE | 2017-08-24 11:46 | HP ---
The patient was seen and examined at bedside on 08/23/2017. CHIEF COMPLAINT: Dizziness and lightheadedness. HISTORY OF PRESENT ILLNESS: Mr. Parker Massey is a 72-year-old male, brought to the emergency room by ambulance, complaining of almost passing out at 3 a.m. in the morning. The patient states that he took his blood pressure medication, however, he felt like he could not walk and ride bicycle to a breakfast place. The patient reports that he felt weak and dizzy, so he called 911 after found that his blood pressure was low. Denies having chest pain or shortness of breath. Was feeling really dizzy and lightheadedness. We admitted the patient in the unit. Called consult with Infectious Disease, inspector poising, and neurologist. PAST MEDICAL HISTORY: Arthritis of right knee, diabetes, gastritis, hypertension, hypercholesterolemia, chronic kidney disease, renal insufficiency, history of endoscopy. FAMILY HISTORY: Father and mother noncontributory. HABITS: Never smoked.no drugs , no ethnol REVIEW OF SYSTEMS: The patient is seen and examined at bedside on 08/23/2017. Looking comfortable. Sitting on the chair. Feeling fatigue and tired. No fevers. No chills. Having lightheadedness. No nausea, vomiting, diarrhea. No headache. PHYSICAL EXAMINATION: VITAL SIGNS: Temperature 97.9, pulse 66, respiratory rate 20, blood pressure 91/53, pulse oximetry 98. HEENT: Head, normocephalic and atraumatic. Eyes: PERRLA. Extraocular muscles intact. Conjunctivae clear. Nose is patent. Mucous membrane moist. NECK: Supple. No carotid bruit. No JVD or thyromegaly. CHEST: Bilaterally symmetrical. HEART: S1 and S2 positive. LUNGS: Clear to auscultation. ABDOMEN: Soft. Bowel sounds present. No organomegaly. EXTREMITIES: No edema. No cyanosis. NEUROLOGICAL: The patient is awake, alert, moving all four extremities. No focal deficits. LABORATORY DATA: White blood cell 12.3, hemoglobin 11.1, hematocrit 35.7, and platelets 236. Sodium 137, potassium 4.5, BUN 49, creatinine 3, glucose 73. ASSESSMENT AND PLAN: Mr. Parker Massey is a 72-year-old male with leukocytosis, renal insufficiency, hypoglycemia; came with lightheadedness and dizziness. Has positive stool culture. Clostridium difficile toxin positive. Pseudomembranous colitis. Near-syncope, hypotension, dehydration, vasovagal, diabetes mellitus, hypertension, hypercholesterolemia. Recent ENT surgery, sinus surgery 3 weeks ago, on antibiotics. We called consult with Dr. Ring also. Started on p.o. vancomycin. Direct contact precautions. Appreciated Dr. Carbajal's input. Seen by Dr. Tyrell Negro, inspector poising. According to the patient, the patient's inspector poising is Dr. Meyer. Dr. Santillan informed Dr. Meyer and signed off the case and informed me. Thank you Dr. Tyrell Negro. Waiting for Dr. Meyer's input. Bladder ultrasound done, seen by Dr. Tyrone Hays. Right knee arthritis. CAT scan of the head shows no acute intracranial abnormalities, just chronic ethmoid sinusitis. His near-syncope is secondary to underlying fascitis, cerebral hyperperfusion to the brain from low blood pressure, superimposed dehydration. Blood sugar was also low. Monitor blood pressure, monitor blood sugar. PT and OT. We will follow up. Alexandar Villaseñor MD MTDD
--- NOTE | 2017-08-24 12:28 | CARD ---
APPROVED REPORT EKG Measurement Heart [id number] <Conclusion> Normal sinus rhythm Normal ECG
--- NOTE | 2017-08-24 20:40 | CP.PCM.PN ---
Subjective - Date & Time of Evaluation Date of Evaluation: 08/24/17 Time of Evaluation: 20:40 - Subjective Subjective: CHIEF COMPLAINTS TODAY : afebrile, Awake and alert. still with loose BMs x4 ROS. HEENT : N. Resp : No cough, wheezing ,pleuritic CP ,or hemoptysis Cardio : No anginal CP, PND, orthopnea, palpitation GI : No abd.pain, n/v ,diarrhea or GI bleeding . 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 Musculoskel : No joint swelling , Derm : No rash Psych : Normal affect. Ext : No swelling ,calf pain PE. Pt. is alert awake in no distress. V.S As noted in the chart Head ,ear nose,throat and eyes : Normal. Neck : Supple with normal carotids. Lungs: Clear air entry. Heart : S1 & S2 normal with S4. No murmur. Abd : Soft non tender with normal bowel sounds. Neuro : Moves all ext. with no localized deficit. Ext : No edema with intact pulses.Non tender calves Derm : No rashes or decubitus ulcer. LABS/RADIOLOGY: reviewed Objective - Vital Signs/Intake and Output Vital Signs (last 24 hours): Temp Pulse Resp BP Pulse Ox 98.7 F 73 19 155/65 H 97 08/24/17 20:00 08/24/17 20:00 08/24/17 20:00 08/24/17 19:53 08/24/17 20:00 Intake and Output: 08/24/17 08/25/17 18:59 06:59 Intake Total 540 Output Total 550 Balance -10 - Medications Medications: Current Medications Acetaminophen (Tylenol 325mg Tab) 650 mg PO Q4H PRN PRN Reason: pain fever Heparin Sodium (Porcine) (Heparin) 5,000 units SC Q12 [facility] Last Admin: 08/24/17 09:01 Dose: 5,000 units Insulin Glargine (Lantus) 20 unit SC ACB [facility] Last Admin: 08/24/17 08:07 Dose: 20 u Laoin-5-Vxdx Ethyl Esters (Lovaza) 1 gm PO BID [facility] Last Admin: 08/24/17 17:06 Dose: 1 gm Pantoprazole Sodium (Protonix Ec Tab) 20 mg PO DAILY [facility] Last Admin: 08/24/17 09:01 Dose: 20 mg Risperidone (Risperdal Tab) 3 mg PO DAILY [facility] Last Admin: 08/24/17 09:01 Dose: 3 mg Rosuvastatin Calcium (Crestor) 2.5 mg PO HS [facility] Last Admin: 08/23/17 21:32 Dose: 2.5 mg Tamsulosin HCl (Flomax) 0.4 mg PO DAILY [facility] Last Admin: 08/24/17 09:01 Dose: 0.4 mg Vancomycin HCl (Vancocin (Oral Or Rectal Use)) 250 mg PO QID [facility] PRN Reason: Protocol Last Admin: 08/24/17 17:06 Dose: 250 mg Vitamin B Complex/Vit C/Folic Acid (Nephro-Dee Dee) 1 tab PO 0800 [facility] Last Admin: 08/24/17 08:09 Dose: 1 tab - Labs Labs: 08/23/17 05:17 08/23/17 05:17 Assessment and Plan - Assessment and Plan (Free Text) Assessment: IMPRESSION: .PSEUDOMEMBRANOUS COLITIS ( +VE STOOL C DIFFICILE TOXIN ) .NEAR SYNCOPY -HYPOTENSION,DEHYDRATION, VASOVAGAL. .RENAL INSUFFICINCY/ON CRF. . DM -2 . HTN . HYPERCHOLESTRLEMIA . RECENT (ENT -SINUS SURGERY -3WKS AGO -ON ABX ) PLAN ; ON PO VANCOMYCIN 250MG QID .08/23/17. IV FLUIDS. RENAL EVALUATION NOTED ENTERIC/CONTACT PRECAUTIONS. F/U BLOOD WORKS IN A.M.
[2017-08-24] MEDS: Rosuvastatin Calcium 2.5 mg Tab PO SCH (21:32)
--- NOTE | 2017-08-25 00:03 | CP.PCM.PN ---
Subjective - Date & Time of Evaluation Date of Evaluation: 08/24/17 Time of Evaluation: 16:00 - Subjective Subjective: SEEN ON RENAL F/U FEELS IMPROVED ALL PREVIOUS EMR REVIEWED RENAL FUNCTION STABLE Objective - Vital Signs/Intake and Output Vital Signs (last 24 hours): Temp Pulse Resp BP Pulse Ox 98.7 F 73 19 155/65 H 97 08/24/17 20:00 08/24/17 20:00 08/24/17 20:00 08/24/17 19:53 08/24/17 20:00 Intake and Output: 08/24/17 08/25/17 18:59 06:59 Intake Total 540 Output Total 550 Balance -10 - Medications Medications: Current Medications Acetaminophen (Tylenol 325mg Tab) 650 mg PO Q4H PRN PRN Reason: pain fever Heparin Sodium (Porcine) (Heparin) 5,000 units SC Q12 [facility] Last Admin: 08/24/17 21:31 Dose: 5,000 units Insulin Glargine (Lantus) 20 unit SC ACB [facility] Last Admin: 08/24/17 08:07 Dose: 20 u Kkzzx-5-Vbdk Ethyl Esters (Lovaza) 1 gm PO BID [facility] Last Admin: 08/24/17 17:06 Dose: 1 gm Pantoprazole Sodium (Protonix Ec Tab) 20 mg PO DAILY [facility] Last Admin: 08/24/17 09:01 Dose: 20 mg Risperidone (Risperdal Tab) 3 mg PO DAILY [facility] Last Admin: 08/24/17 09:01 Dose: 3 mg Rosuvastatin Calcium (Crestor) 2.5 mg PO HS [facility] Last Admin: 08/24/17 21:32 Dose: 2.5 mg Tamsulosin HCl (Flomax) 0.4 mg PO DAILY [facility] Last Admin: 08/24/17 09:01 Dose: 0.4 mg Vancomycin HCl (Vancocin (Oral Or Rectal Use)) 250 mg PO QID [facility] PRN Reason: Protocol Last Admin: 08/24/17 21:31 Dose: 250 mg Vitamin B Complex/Vit C/Folic Acid (Nephro-Dee Dee) 1 tab PO 0800 [facility] Last Admin: 08/24/17 08:09 Dose: 1 tab - Labs Labs: 08/23/17 05:17 08/23/17 05:17 Assessment and Plan - Assessment and Plan (Free Text) Assessment: CKD .. STAGE 4 .. eGFR 25 ML/M ANEMIA OF CKD .. H/H STABLE C DIFF .. ON PO VANCO AND IVF MMP P : C/O CURRENT CARE C/O PRESENT MEDS C/O RENAL AND DIEBETIC DIET
--- NOTE | 2017-08-25 03:20 | PN ---
DATE: 08/24/2017 SUBJECTIVE: The patient is a 72 years old male. The patient was seen in the unit which is actually telemetry bed. The patient looks comfortable, feeling cold. No nausea, vomiting, or diarrhea. No hematuria or hematochezia. No swelling of the legs. No chest pain or palpitation. PHYSICAL EXAMINATION: VITAL SIGNS: Temperature 98.7, pulse 72, respirations 19, blood pressure 155/65, pulse oximetry 97. HEENT: Head, normocephalic and atraumatic. Eyes, PERRLA. Extraocular muscles intact. Conjunctivae clear. Nose patent. NECK: Supple. No carotid bruit, JVD, or thyromegaly. CHEST: Bilaterally symmetrical. HEART: S1 and S2 positive. LUNGS: Clear to auscultation. ABDOMEN: Soft. Bowel sounds present. No organomegaly. EXTREMITIES: No edema. No cyanosis. NEUROLOGIC: The patient is awake, alert. Moving all four extremities. No focal deficit. MEDICATIONS: Tylenol, heparin, insulin, omega, pantoprazole, risperidone, Crestor, Primaxin, vancomycin, vitamin B complex. LABORATORY DATA: White blood cell 9.5, hemoglobin 13.5, hematocrit 40.4, platelets 227. Sodium 139, potassium 3.9, BUN 49, creatinine 2.6, glucose 125. ASSESSMENT AND PLAN: Mr. Bryson Canales with renal insufficiency, hyperchloremia, hypoglycemia with multiple medical problems, history of arthritis of the right knee, diabetes mellitus, gastritis, hypertension, hypercholesterolemia, chronic kidney disease, renal insufficiency, history of endoscopy. Came with lightheadedness and dizziness. Clostridium difficile toxin treatment. Has pseudomembranous colitis, near syncope, hypotension, dehydration, vasovagal, diabetes mellitus, hypertension, hypercholesterolemia, recent ENT surgery. Discussion done with the nursing staff. Continue the current treatment. Repeat labs. We will follow up. Alexandra Villaseñor MD MTDD
[2017-08-25] MEDS: (Lantus) Insulin Glargine, Recombinant SC SCH (08:20)
[2017-08-25] MEDS: Omega-3-Acid Ethyl Esters 1 GM Cap PO SCH ×2 (09:43→17:13)
[2017-08-25] MEDS: Pantoprazole 20 mg EC Tab PO SCH (09:43)
[2017-08-25] MEDS: Vancomycin 125 MG/5 ML SOLN (ORAL/RECTAL) PO SCH ×4 (09:44→21:29)
[2017-08-25] MEDS: Multivitamin Vitamin B Complex (Nephro-Vite) Tab PO SCH (10:18)
--- NOTE | 2017-08-25 13:55 | CP.PCM.PN ---
Subjective - Date & Time of Evaluation Date of Evaluation: 08/25/17 Time of Evaluation: 13:55 - Subjective Subjective: CHIEF COMPLAINTS TODAY : TMAX 99.3 VSS Awake and alert. DENIES DIARRHEA C/O BLOATING AND CONSTIPATION NOW ASKING FOR ENT DR. AHRRISON EVALUATION FOR HIS RECENT SURGERY F/U. ROS. HEENT : N. Resp : No cough, wheezing ,pleuritic CP ,or hemoptysis Cardio : No anginal CP, PND, orthopnea, palpitation GI : No abd.pain, n/v ,diarrhea or GI bleeding . 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 Musculoskel : No joint swelling , Derm : No rash Psych : Normal affect. Ext : No swelling ,calf pain PE. Pt. is alert awake in no distress. V.S As noted in the chart Head ,ear nose,throat and eyes : Normal. Neck : Supple with normal carotids. Lungs: Clear air entry. Heart : S1 & S2 normal with S4. No murmur. Abd : Soft non tender with normal bowel sounds. Neuro : Moves all ext. with no localized deficit. Ext : No edema with intact pulses.Non tender calves Derm : No rashes or decubitus ulcer. LABS/RADIOLOGY: reviewed Objective - Vital Signs/Intake and Output Vital Signs (last 24 hours): Temp Pulse Resp BP Pulse Ox 99.3 F 75 19 142/83 99 08/25/17 08:00 08/25/17 08:00 08/25/17 06:00 08/25/17 07:53 08/25/17 08:00 Intake and Output: 08/25/17 08/25/17 06:59 18:59 Intake Total 240 350 Output Total 700 520 Balance -460 -170 - Medications Medications: Current Medications Acetaminophen (Tylenol 325mg Tab) 650 mg PO Q4H PRN PRN Reason: pain fever Heparin Sodium (Porcine) (Heparin) 5,000 units SC Q12 [facility] Last Admin: 08/25/17 09:42 Dose: 5,000 units Insulin Glargine (Lantus) 20 unit SC ACB [facility] Last Admin: 08/25/17 08:20 Dose: 20 u Zycvr-4-Ungq Ethyl Esters (Lovaza) 1 gm PO BID [facility] Last Admin: 08/25/17 09:43 Dose: 1 gm Pantoprazole Sodium (Protonix Ec Tab) 20 mg PO DAILY [facility] Last Admin: 08/25/17 09:43 Dose: 20 mg Risperidone (Risperdal Tab) 3 mg PO DAILY [facility] Last Admin: 08/25/17 09:43 Dose: 3 mg Rosuvastatin Calcium (Crestor) 2.5 mg PO HS [facility] Last Admin: 08/24/17 21:32 Dose: 2.5 mg Tamsulosin HCl (Flomax) 0.4 mg PO DAILY [facility] Last Admin: 08/25/17 09:43 Dose: 0.4 mg Vancomycin HCl (Vancocin (Oral Or Rectal Use)) 250 mg PO QID [facility] PRN Reason: Protocol Last Admin: 08/25/17 09:44 Dose: 250 mg Vitamin B Complex/Vit C/Folic Acid (Nephro-Dee Dee) 1 tab PO 0800 [facility] Last Admin: 08/25/17 10:18 Dose: 1 tab - Labs Labs: 08/23/17 05:17 08/23/17 05:17 Assessment and Plan - Assessment and Plan (Free Text) Assessment: IMPRESSION: .PSEUDOMEMBRANOUS COLITIS ( +VE STOOL C DIFFICILE TOXIN ) .NEAR SYNCOPY -HYPOTENSION,DEHYDRATION, VASOVAGAL. .RENAL INSUFFICINCY/ON CRF. . DM -2 . HTN . HYPERCHOLESTRLEMIA . RECENT (ENT -SINUS SURGERY -3WKS AGO -ON ABX ) PLAN ; ON PO VANCOMYCIN 250MG QID .08/23/17. IV FLUIDS. ENTERIC/CONTACT PRECAUTIONS. CONSIDER ENT EVALUATION FOR FOLLOW-UP OF SINUS SURGERY.
[2017-08-25 17:40] VITALS: RESP 20
[2017-08-25] MEDS: Rosuvastatin Calcium 2.5 mg Tab PO SCH (21:29)
--- NOTE | 2017-08-25 23:13 | CP.PCM.PN ---
Subjective - Date & Time of Evaluation Date of Evaluation: 08/25/17 Time of Evaluation: 14:00 - Subjective Subjective: SEEN ON RENAL F/U FEELS IMPROVED ALL PREVIOUS EMR REVIEWED Objective - Vital Signs/Intake and Output Vital Signs (last 24 hours): Temp Pulse Resp BP Pulse Ox 98.3 F 77 20 156/86 H 98 08/25/17 16:00 08/25/17 16:00 08/25/17 16:00 08/25/17 16:00 08/25/17 16:00 Intake and Output: 08/25/17 08/26/17 18:59 06:59 Intake Total 350 400 Output Total 520 500 Balance -170 -100 - Medications Medications: Current Medications Acetaminophen (Tylenol 325mg Tab) 650 mg PO Q4H PRN PRN Reason: pain fever Heparin Sodium (Porcine) (Heparin) 5,000 units SC Q12 [facility] Last Admin: 08/25/17 21:29 Dose: 5,000 units Insulin Glargine (Lantus) 20 unit SC ACB [facility] Last Admin: 08/25/17 08:20 Dose: 20 u Mfmpw-6-Ebqp Ethyl Esters (Lovaza) 1 gm PO BID [facility] Last Admin: 08/25/17 17:13 Dose: 1 gm Pantoprazole Sodium (Protonix Ec Tab) 20 mg PO DAILY [facility] Last Admin: 08/25/17 09:43 Dose: 20 mg Risperidone (Risperdal Tab) 3 mg PO DAILY [facility] Last Admin: 08/25/17 09:43 Dose: 3 mg Rosuvastatin Calcium (Crestor) 2.5 mg PO HS [facility] Last Admin: 08/25/17 21:29 Dose: 2.5 mg Tamsulosin HCl (Flomax) 0.4 mg PO DAILY [facility] Last Admin: 08/25/17 09:43 Dose: 0.4 mg Vancomycin HCl (Vancocin (Oral Or Rectal Use)) 250 mg PO QID [facility] PRN Reason: Protocol Last Admin: 08/25/17 21:29 Dose: 250 mg Vitamin B Complex/Vit C/Folic Acid (Nephro-Dee Dee) 1 tab PO 0800 [facility] Last Admin: 08/25/17 10:18 Dose: 1 tab - Labs Labs: 08/23/17 05:17 08/23/17 05:17 Assessment and Plan - Assessment and Plan (Free Text) Assessment: CKD STAGE 4 .. eGFR 25 ML / M .. STABLE ELECTROLYTES STABLE ANEMIA OF CKD .. H/H STABLE C DIFF .. ON POVANCO MMP P : C/O CURRENT CARE
--- NOTE | 2017-08-26 04:45 | PN ---
DATE: 08/25/2017 SUBJECTIVE: The patient is a 72-year-old male. The patient was seen and examined at bedside on 08/25/2017 and looking comfortable. No nausea, vomiting, or diarrhea. No hematuria or hematochezia. No swelling of the legs. No chest pain or palpitation. No headache or dizziness. Feels better. PHYSICAL EXAMINATION: VITAL SIGNS: Temperature 98.3, pulse 77, respiratory rate 20, blood pressure 156/86, pulse oximetry 98. HEENT: Head, normocephalic and atraumatic. Eyes: PERRLA. Extraocular muscles intact. Conjunctivae clear. Nose patent. Mucous membranes moist. NECK: Supple. No carotid bruit. No JVD or thyromegaly. CHEST: Bilaterally symmetrical. HEART: S1 and S2 positive. LUNGS: Clear to auscultation. ABDOMEN: Soft. Bowel sounds present. No organomegaly. EXTREMITIES: No edema. No cyanosis. NEUROLOGICAL: The patient is awake, alert. Moving all four extremities. No focal deficits. MEDICATIONS: Tylenol, heparin, insulin, Caldwell-3, Protonix, Risperdal, Crestor, Flomax, vancomycin, vitamins. LABORATORY DATA: White blood cell 9.5, hemoglobin 13.5, hematocrit 40.4, and platelets 227. Sodium 139, potassium 3.9, BUN 49, creatinine 2.6, glucose 125. ASSESSMENT AND PLAN: Mr. Parker Massey is a 72 years old male with renal insufficiency, diabetes mellitus, hyperchloremia, chronic kidney disease stage IV, estimated glomerular filtration rate 25 mL/minute, electrolytes stable, anemia due to chronic kidney disease, hemoglobin and hematocrit are stable. Clostridium difficile toxin, on p.o. vancomycin. Infectious Disease is on the case. Day Care Teacher is on the case. Appreciated Infectious Disease's and Nephrology's input. We will repeat electrolytes. If stable tomorrow, we will plan about discharge. History of arthritis of the right knee. Gastritis, hypertension, hypercholesterolemia, history of endoscopy, lightheadedness and dizziness, history of vasovagal, dehydration, near syncope. Seen by the ENT. Gastrointestinal and deep venous thrombosis prophylaxis. Repeat laboratories. We will follow up. Seen by Dr. Tyrone Hays. Alexandra Villaseñor MD [facility] # [id number]
[2017-08-26] MEDS: Multivitamin Vitamin B Complex (Nephro-Vite) Tab PO SCH (08:32)
[2017-08-26] MEDS: (Lantus) Insulin Glargine, Recombinant SC SCH (08:33)
[2017-08-26] MEDS: Omega-3-Acid Ethyl Esters 1 GM Cap PO SCH ×2 (09:49→18:26)
[2017-08-26] MEDS: Pantoprazole 20 mg EC Tab PO SCH (09:49)
[2017-08-26] MEDS: Vancomycin 125 MG/5 ML SOLN (ORAL/RECTAL) PO SCH ×4 (09:50→21:45)
--- NOTE | 2017-08-26 13:48 | CP.PCM.PN ---
Subjective - Date & Time of Evaluation Date of Evaluation: 08/26/17 Time of Evaluation: 13:47 - Subjective Subjective: CHIEF COMPLAINTS TODAY : TMAX 99.3 VSS Awake and alert. C/O SOFT STOOLS ABLE TO GIVE SAMPLE OF STOOL ROS. HEENT : N. Resp : No cough, wheezing ,pleuritic CP ,or hemoptysis Cardio : No anginal CP, PND, orthopnea, palpitation GI : No abd.pain, n/v ,diarrhea or GI bleeding . 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 Musculoskel : No joint swelling , Derm : No rash Psych : Normal affect. Ext : No swelling ,calf pain PE. Pt. is alert awake in no distress. V.S As noted in the chart Head ,ear nose,throat and eyes : Normal. Neck : Supple with normal carotids. Lungs: Clear air entry. Heart : S1 & S2 normal with S4. No murmur. Abd : Soft non tender with normal bowel sounds. Neuro : Moves all ext. with no localized deficit. Ext : No edema with intact pulses.Non tender calves Derm : No rashes or decubitus ulcer. LABS/RADIOLOGY: reviewed. BS HIGH Objective - Vital Signs/Intake and Output Vital Signs (last 24 hours): Temp Pulse Resp BP Pulse Ox 97.8 F 74 20 137/87 97 08/26/17 07:45 08/26/17 07:45 08/26/17 07:45 08/26/17 07:45 08/26/17 07:45 Intake and Output: 08/26/17 08/26/17 06:59 18:59 Intake Total 640 Output Total 500 Balance 140 - Medications Medications: Current Medications Acetaminophen (Tylenol 325mg Tab) 650 mg PO Q4H PRN PRN Reason: pain fever Insulin Glargine (Lantus) 20 unit SC ACB [facility] Last Admin: 08/26/17 08:33 Dose: 20 u Evmil-1-Drcf Ethyl Esters (Lovaza) 1 gm PO BID [facility] Last Admin: 08/26/17 09:49 Dose: 1 gm Pantoprazole Sodium (Protonix Ec Tab) 20 mg PO DAILY [facility] Last Admin: 08/26/17 09:49 Dose: 20 mg Risperidone (Risperdal Tab) 3 mg PO DAILY [facility] Last Admin: 08/26/17 09:51 Dose: 3 mg Rosuvastatin Calcium (Crestor) 2.5 mg PO HS [facility] Last Admin: 08/25/17 21:29 Dose: 2.5 mg Tamsulosin HCl (Flomax) 0.4 mg PO DAILY [facility] Last Admin: 08/26/17 09:49 Dose: 0.4 mg Vancomycin HCl (Vancocin (Oral Or Rectal Use)) 250 mg PO QID [facility] PRN Reason: Protocol Last Admin: 08/26/17 13:22 Dose: 250 mg Vitamin B Complex/Vit C/Folic Acid (Nephro-Dee Dee) 1 tab PO 0800 [facility] Last Admin: 08/26/17 08:32 Dose: 1 tab - Labs Labs: 08/23/17 05:17 08/23/17 05:17 Assessment and Plan - Assessment and Plan (Free Text) Assessment: IMPRESSION: .PSEUDOMEMBRANOUS COLITIS ( +VE STOOL C DIFFICILE TOXIN ) .NEAR SYNCOPY -HYPOTENSION,DEHYDRATION, VASOVAGAL. .RENAL INSUFFICINCY/ON CRF. . DM -2 . HTN . HYPERCHOLESTRLEMIA . RECENT (ENT -SINUS SURGERY -3WKS AGO -ON ABX ) PLAN ; ON PO VANCOMYCIN 250MG QID .08/23/17. IV FLUIDS. F/U BLOOD WORKS ENTERIC/CONTACT PRECAUTIONS.
[2017-08-26] MEDS: Rosuvastatin Calcium 2.5 mg Tab PO SCH (21:45)
--- NOTE | 2017-08-26 22:42 | CP.PCM.PN ---
Subjective - Date & Time of Evaluation Date of Evaluation: 08/26/17 Time of Evaluation: 16:00 - Subjective Subjective: SEEN ON RENAL F/U FEELS BETTER RENAL FUNCTION REMAINS STABLE REASSURED Objective - Vital Signs/Intake and Output Vital Signs (last 24 hours): Temp Pulse Resp BP Pulse Ox 98.3 F 78 20 155/77 H 97 08/26/17 16:33 08/26/17 16:33 08/26/17 16:33 08/26/17 16:33 08/26/17 16:33 Intake and Output: 08/26/17 08/27/17 18:59 06:59 Intake Total 300 Balance 300 - Medications Medications: Current Medications Acetaminophen (Tylenol 325mg Tab) 650 mg PO Q4H PRN PRN Reason: pain fever Insulin Glargine (Lantus) 20 unit SC ACB [facility] Last Admin: 08/26/17 08:33 Dose: 20 u Ycith-1-Afcw Ethyl Esters (Lovaza) 1 gm PO BID [facility] Last Admin: 08/26/17 18:26 Dose: 1 gm Pantoprazole Sodium (Protonix Ec Tab) 20 mg PO DAILY [facility] Last Admin: 08/26/17 09:49 Dose: 20 mg Risperidone (Risperdal Tab) 3 mg PO DAILY [facility] Last Admin: 08/26/17 09:51 Dose: 3 mg Rosuvastatin Calcium (Crestor) 2.5 mg PO HS [facility] Last Admin: 08/26/17 21:45 Dose: 2.5 mg Tamsulosin HCl (Flomax) 0.4 mg PO DAILY [facility] Last Admin: 08/26/17 09:49 Dose: 0.4 mg Vancomycin HCl (Vancocin (Oral Or Rectal Use)) 250 mg PO QID [facility] PRN Reason: Protocol Last Admin: 08/26/17 21:45 Dose: 250 mg Vitamin B Complex/Vit C/Folic Acid (Nephro-Dee Dee) 1 tab PO 0800 [facility] Last Admin: 08/26/17 08:32 Dose: 1 tab - Labs Labs: 08/23/17 05:17 08/23/17 05:17 Assessment and Plan - Assessment and Plan (Free Text) Assessment: CKD .. RENAL FUNCTION STABLE ANEMIA OF CKD .. H/H STABLE C.DIFF .. ON PO VANCO .. IMPROVING MMP P: C/O CURRENT CARE C/O PRESENT MANAGEMENT
--- NOTE | 2017-08-27 02:46 | PN ---
DATE: 08/26/2017 SUBJECTIVE: The patient is a 72-year-old male. The patient was seen and examined at the bedside, looking comfortable. No nausea, vomiting, or diarrhea. No hematuria or hematochezia. No swelling of the leg. No chest pain. No palpitation. No headache or dizziness. PHYSICAL EXAMINATION: VITAL SIGNS: Temperature 97.8, pulse 74, respiratory rate 20, blood pressure 137/87, pulse oximetry 97. HEENT: Head, normocephalic and atraumatic. Eyes: PERRLA. Extraocular muscles intact. Conjunctivae clear. Nose patent. Mucous membranes moist. NECK: Supple. No carotid bruit. No JVD or thyromegaly. CHEST: Bilaterally symmetrical. HEART: S1 and S2 positive. LUNGS: Clear to auscultation. ABDOMEN: Soft. Bowel sounds present. No organomegaly. EXTREMITIES: No edema. No cyanosis. NEUROLOGICAL: The patient is awake, alert. Moving all four extremities. No focal deficits. MEDICATIONS: Tylenol, insulin, [place]-3, Protonix, Risperdal, Crestor, Flomax, vancomycin. LABORATORY DATA: White blood cell 9.5, hemoglobin 13.5, hematocrit 48.4, and platelets 227. Sodium 139, potassium 3.9, BUN 14, creatinine 2.6, glucose 125. ASSESSMENT AND PLAN: Mr. Parker Massey is a 72-year-old male with renal insufficiency, hyperchloremia, hyperglycemia, Clostridium difficile toxin colitis positive diarrhea, getting vancomycin from Infectious Disease. Seen by Dr. Tyrell Negro, airline dispatcher. History of acute on chronic disease. We will repeat electrolytes. Gastrointestinal and deep venous thrombosis prophylaxis. We will discuss with the Infectious Disease and Nephrology for discharge planning. Meanwhile, continue present treatment. Repeat labs. We will follow up. Alexandra Villaseñor MD
[2017-08-27 07:35] LABS: HEMOGLOBIN 13.6 g/dL (12.0-18.0); MEAN CELL VOLUME 88.1 fL (80.0-94.0); MEAN CORPUSCULAR HGB CONC 35.2 g/dL (33.0-37.0); MEAN PLATELET VOLUME 10.7 fL (7.2-11.7); RBC 4.38 Mil/uL (4.40-5.90); RED CELL DISTRIBUTION WIDTH 12.4 % (11.5-14.5); WHITE BLOOD COUNT 7.8 K/uL (4.8-10.8)
[2017-08-27 07:57] LABS: ALB/GLOB RATIO 1.3 (1.0-2.1); ALBUMIN 3.8 g/dL (3.5-5.0); BILIRUBIN,DIRECT 0.6 mg/dL (0.0-0.4); CALCIUM 9.1 mg/dl (8.6-10.4)
[2017-08-27] MEDS: Multivitamin Vitamin B Complex (Nephro-Vite) Tab PO SCH (08:45)
[2017-08-27] MEDS: (Lantus) Insulin Glargine, Recombinant SC SCH (08:46)
[2017-08-27] MEDS: Pantoprazole 20 mg EC Tab PO SCH (10:07)
[2017-08-27] MEDS: Vancomycin 125 MG/5 ML SOLN (ORAL/RECTAL) PO SCH ×4 (10:07→21:31)
[2017-08-27] MEDS: Omega-3-Acid Ethyl Esters 1 GM Cap PO SCH ×2 (10:07→17:08)
--- NOTE | 2017-08-27 12:40 | CP.PCM.PN ---
Subjective - Date & Time of Evaluation Date of Evaluation: 08/27/17 Time of Evaluation: 12:40 - Subjective Subjective: CHIEF COMPLAINTS TODAY : afebrile Awake and alert. C/O SOFT formed stools. also complains of difficulty breathing through the nose. Patient with recent ENT surgery Requesting ENT follow-up with Dr. HARRISON DUE NOW. ABLE TO GIVE SAMPLE OF STOOL but discarded as reported. ROS. HEENT : N. Resp : No cough, wheezing ,pleuritic CP ,or hemoptysis Cardio : No anginal CP, PND, orthopnea, palpitation GI : No abd.pain, n/v ,diarrhea or GI bleeding . DRAUGHTSMAN : No headache, vertigo, focal deficit. Musculoskel : No joint swelling , Derm : PATIENT HAS SEBORRHEIC DERMATITIS WITH FACIAL ERYTHEMA BILATERAL NASOLABIAL FOLDS. Psych : Normal affect. Ext : No swelling ,calf pain PE. Pt. is alert awake in no distress. V.S As noted in the chart Head ,ear nose,throat and eyes : Normal. Neck : Supple with normal carotids. Lungs: Clear air entry. Heart : S1 & S2 normal with S4. No murmur. Abd : Soft non tender with normal bowel sounds. Neuro : Moves all ext. with no localized deficit. Ext : No edema with intact pulses.Non tender calves Derm ; SEBORRHEIC DERMATITIS WITH FACIAL ERYTHEMA BILATERAL NASOLABIAL FOLDS. LABS/RADIOLOGY: wbc 7.8 cREATININE 1.7/bun 21 LFTS IMPROVING. Objective - Vital Signs/Intake and Output Vital Signs (last 24 hours): Temp Pulse Resp BP Pulse Ox 99.1 F 93 H 20 167/90 H 98 08/27/17 08:00 08/27/17 08:00 08/27/17 08:00 08/27/17 08:00 08/27/17 08:00 Intake and Output: 08/27/17 08/27/17 06:59 18:59 Intake Total 860 Output Total 400 Balance 460 - Medications Medications: Current Medications Acetaminophen (Tylenol 325mg Tab) 650 mg PO Q4H PRN PRN Reason: pain fever Insulin Glargine (Lantus) 20 unit SC ACB [facility] Last Admin: 08/27/17 08:46 Dose: 20 u Sapnm-6-Rief Ethyl Esters (Lovaza) 1 gm PO BID [facility] Last Admin: 08/27/17 10:07 Dose: 1 gm Pantoprazole Sodium (Protonix Ec Tab) 20 mg PO DAILY [facility] Last Admin: 08/27/17 10:07 Dose: 20 mg Risperidone (Risperdal Tab) 3 mg PO DAILY [facility] Last Admin: 08/27/17 10:07 Dose: 3 mg Rosuvastatin Calcium (Crestor) 2.5 mg PO HS [facility] Last Admin: 08/26/17 21:45 Dose: 2.5 mg Tamsulosin HCl (Flomax) 0.4 mg PO DAILY [facility] Last Admin: 08/27/17 10:08 Dose: 0.4 mg Vancomycin HCl (Vancocin (Oral Or Rectal Use)) 250 mg PO QID [facility] PRN Reason: Protocol Last Admin: 08/27/17 10:07 Dose: 250 mg Vitamin B Complex/Vit C/Folic Acid (Nephro-Dee Dee) 1 tab PO 0800 [facility] Last Admin: 08/27/17 08:45 Dose: 1 tab - Labs Labs: 08/27/17 07:23 08/27/17 07:23 Assessment and Plan - Assessment and Plan (Free Text) Assessment: IMPRESSION: .PSEUDOMEMBRANOUS COLITIS ( +VE STOOL C DIFFICILE TOXIN ) .NEAR SYNCOPY -HYPOTENSION,DEHYDRATION, VASOVAGAL. .RENAL INSUFFICINCY/ON CRF. . DM -2 . HTN . HYPERCHOLESTRLEMIA . RECENT (ENT -SINUS SURGERY -3WKS AGO -ON ABX ) . SEBORRHEIC DERMATITIS PLAN ; ON PO VANCOMYCIN 250MG QID .08/23/17. IV FLUIDS. LOTRISONE CREAM LOCALLY TID BILATERAL NASOLABIAL FOLDS. ENTERIC/CONTACT PRECAUTIONS. ENT EVALUATION DR HARRISON ( PATIENT REQUESTING )
[2017-08-27] MEDS: Oxymetazoline 0.05% Nasal Spray (30 ml) NS SCH (18:35)
[2017-08-27] MEDS: Rosuvastatin Calcium 2.5 mg Tab PO SCH (21:31)
--- NOTE | 2017-08-28 | CP.PCM.PN ---
Subjective - Date & Time of Evaluation Date of Evaluation: 08/27/17 Time of Evaluation: 16:00 - Subjective Subjective: SEEN ON RENAL F/U FEELS MUCH IMPROVED RENAL FUNCTION MUCH BETTER .. eGFR UP TO 40 ML/M ALL PREVIOUS EMR REVIEWED Objective - Vital Signs/Intake and Output Vital Signs (last 24 hours): Temp Pulse Resp BP Pulse Ox 97.7 F 93 H 20 171/93 H 98 08/27/17 17:52 08/27/17 17:52 08/27/17 17:52 08/27/17 17:52 08/27/17 17:52 Intake and Output: 08/27/17 08/28/17 18:59 06:59 Intake Total 300 450 Balance 300 450 - Medications Medications: Current Medications Acetaminophen (Tylenol 325mg Tab) 650 mg PO Q4H PRN PRN Reason: pain fever Insulin Glargine (Lantus) 20 unit SC ACB [facility] Last Admin: 08/27/17 08:46 Dose: 20 u Xktdu-4-Hgab Ethyl Esters (Lovaza) 1 gm PO BID [facility] Last Admin: 08/27/17 17:08 Dose: 1 gm Oxymetazoline HCl (Afrin 0.05%) 0 ml NS Q12H [facility] Last Admin: 08/27/17 18:35 Dose: 1 spr Pantoprazole Sodium (Protonix Ec Tab) 20 mg PO DAILY [facility] Last Admin: 08/27/17 10:07 Dose: 20 mg Risperidone (Risperdal Tab) 3 mg PO DAILY [facility] Last Admin: 08/27/17 10:07 Dose: 3 mg Rosuvastatin Calcium (Crestor) 2.5 mg PO HS [facility] Last Admin: 08/27/17 21:31 Dose: 2.5 mg Tamsulosin HCl (Flomax) 0.4 mg PO DAILY [facility] Last Admin: 08/27/17 10:08 Dose: 0.4 mg Vancomycin HCl (Vancocin (Oral Or Rectal Use)) 250 mg PO QID [facility] PRN Reason: Protocol Last Admin: 08/27/17 21:31 Dose: 250 mg Vitamin B Complex/Vit C/Folic Acid (Nephro-Dee Dee) 1 tab PO 0800 [facility] Last Admin: 08/27/17 08:45 Dose: 1 tab - Labs Labs: 08/27/17 07:23 08/27/17 07:23 Assessment and Plan - Assessment and Plan (Free Text) Assessment: CKD STAGE 3 .. RENAL FUNCTION MUCH BETTER ELECTROLYTES BETTER C . DIFF .. BETTER MMP P : C/O CURRENT CARE REASSURED C/O PRESENT MEDS
--- NOTE | 2017-08-28 01:02 | PN ---
DATE: 08/27/2017 SUBJECTIVE: The patient is a 72-year-old male. The patient was seen and examined at the bedside on 08/27/2017, looking comfortable. No nausea, vomiting, or diarrhea. No hematuria or hematochezia. No swelling of the legs. No chest pain or palpitation. No headaches or dizziness. PHYSICAL EXAMINATION: VITAL SIGNS: Temperature 98.6, pulse 93, respiratory rate 20, blood pressure 157/90, pulse oximetry 98%. HEENT: Head is normocephalic and atraumatic. Eyes: PERRLA. Extraocular muscles intact. Conjunctivae clear. Nose patent. Mucous membrane moist. NECK: Supple. No carotid bruit, JVD or thyromegaly. CHEST: Bilaterally symmetrical. HEART: S1 and S2 positive. LUNGS: Clear to auscultation. ABDOMEN: Soft. Bowel sounds present. No organomegaly. EXTREMITIES: No edema, no cyanosis. NEUROLOGIC: The patient is awake, alert. Moving all four extremities. No focal deficits. MEDICATIONS: Tylenol, Lantus, [place]-3, Protonix, Risperdal, Crestor, Flomax, vancomycin, vitamin B complex. LABORATORY DATA: White blood cells 7.8, hemoglobin 13.2, hematocrit 38.6, platelets 222. Sodium 145, potassium 3.9, BUN 21, creatinine 1.7, glucose of 130. ASSESSMENT AND PLAN: Mr. Parker Massey is a 72-year-old male with renal insufficiency, hyperglycemia, Clostridium difficile toxin colitis. Infectious Disease is on the case. Getting vancomycin from Infectious Disease. Neurologist is on the case. Gastrointestinal and deep venous thrombosis prophylaxis. Gastroesophageal reflux disease, dyspepsia. Continue present treatment. Repeat labs. We will follow up. Alexandra Villaseñor MD MTDD
[2017-08-28] MEDS: Oxymetazoline 0.05% Nasal Spray (30 ml) NS SCH ×2 (05:31→17:27)
[2017-08-28] MEDS: Multivitamin Vitamin B Complex (Nephro-Vite) Tab PO SCH (08:30)
[2017-08-28] MEDS: (Lantus) Insulin Glargine, Recombinant SC SCH (08:30)
[2017-08-28] MEDS: Omega-3-Acid Ethyl Esters 1 GM Cap PO SCH ×2 (09:23→17:26)
[2017-08-28] MEDS: Vancomycin 125 MG/5 ML SOLN (ORAL/RECTAL) PO SCH ×3 (09:23→17:28)
[2017-08-28] MEDS: Pantoprazole 20 mg EC Tab PO SCH (09:23)
[2017-08-28] MEDS: Clotrimazole/Betamethasone Cream(15 gm) TOP SCH ×2 (11:00→17:26)
--- NOTE | 2017-08-28 20:50 | CP.PCM.PN ---
Subjective - Date & Time of Evaluation Date of Evaluation: 08/28/17 Time of Evaluation: 20:50 - Subjective Subjective: CHIEF COMPLAINTS TODAY : afebrile Awake and alert. C/O 2 X SOFT formed stools. also complains of difficulty breathing through the nose. SEEN BY ENT TODAY. ROS. HEENT : N. Resp : No cough, wheezing ,pleuritic CP ,or hemoptysis Cardio : No anginal CP, PND, orthopnea, palpitation GI : No abd.pain, n/v ,diarrhea or GI bleeding . 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 Musculoskel : No joint swelling , Derm : PATIENT HAS SEBORRHEIC DERMATITIS WITH FACIAL ERYTHEMA BILATERAL NASOLABIAL FOLDS. Psych : Normal affect. Ext : No swelling ,calf pain PE. Pt. is alert awake in no distress. V.S As noted in the chart Head ,ear nose,throat and eyes : Normal. Neck : Supple with normal carotids. Lungs: Clear air entry. Heart : S1 & S2 normal with S4. No murmur. Abd : Soft non tender with normal bowel sounds. Neuro : Moves all ext. with no localized deficit. Ext : No edema with intact pulses.Non tender calves Derm ; SEBORRHEIC DERMATITIS WITH FACIAL ERYTHEMA BILATERAL NASOLABIAL FOLDS. LABS/RADIOLOGY: wbc 7.8 cREATININE 1.7/bun 21 LFTS IMPROVING. Objective - Vital Signs/Intake and Output Vital Signs (last 24 hours): Temp Pulse Resp BP Pulse Ox 97.9 F 79 20 170/84 H 98 08/28/17 16:00 08/28/17 16:00 08/28/17 16:00 08/28/17 16:00 08/28/17 16:00 Intake and Output: 08/28/17 08/29/17 18:59 06:59 Intake Total 500 Balance 500 - Medications Medications: Current Medications Acetaminophen (Tylenol 325mg Tab) 650 mg PO Q4H PRN PRN Reason: pain fever Betamethasone/Clotrimazole (Lotrisone) 0.5 gm TOP BID [facility] Last Admin: 08/28/17 17:26 Dose: 1 applic Insulin Glargine (Lantus) 20 unit SC ACB [facility] Last Admin: 08/28/17 08:30 Dose: 20 u Losartan Potassium (Cozaar) 100 mg PO DAILY [facility] Ftjck-5-Uyzm Ethyl Esters (Lovaza) 1 gm PO BID [facility] Last Admin: 08/28/17 17:26 Dose: 1 gm Oxymetazoline HCl (Afrin 0.05%) 0 ml NS Q12H [facility] Last Admin: 08/28/17 17:27 Dose: 1 spr Pantoprazole Sodium (Protonix Ec Tab) 20 mg PO DAILY [facility] Last Admin: 08/28/17 09:23 Dose: 20 mg Risperidone (Risperdal Tab) 3 mg PO DAILY [facility] Last Admin: 08/28/17 09:24 Dose: 3 mg Rosuvastatin Calcium (Crestor) 2.5 mg PO HS [facility] Last Admin: 08/27/17 21:31 Dose: 2.5 mg Tamsulosin HCl (Flomax) 0.4 mg PO DAILY [facility] Last Admin: 08/28/17 09:23 Dose: 0.4 mg Vitamin B Complex/Vit C/Folic Acid (Nephro-Dee Dee) 1 tab PO 0800 [facility] Last Admin: 08/28/17 08:30 Dose: 1 tab - Labs Labs: 08/27/17 07:23 08/27/17 07:23 Assessment and Plan - Assessment and Plan (Free Text) Assessment: IMPRESSION: .PSEUDOMEMBRANOUS COLITIS ( +VE STOOL C DIFFICILE TOXIN ) .NEAR SYNCOPY -HYPOTENSION,DEHYDRATION, VASOVAGAL. .RENAL INSUFFICINCY/ON CRF. . DM -2 . HTN . HYPERCHOLESTRLEMIA . RECENT (ENT -SINUS SURGERY -3WKS AGO -ON ABX ) . SEBORRHEIC DERMATITIS PLAN ; ON PO VANCOMYCIN 250MG QID .08/23/17. [id number] IV FLUIDS. LOTRISONE CREAM LOCALLY TID BILATERAL NASOLABIAL FOLDS. ENTERIC/CONTACT PRECAUTIONS. PER ENT.
[2017-08-28] MEDS: Rosuvastatin Calcium 2.5 mg Tab PO SCH (21:31)
--- NOTE | 2017-08-28 23:38 | CON ---
DATE: 08/28/2017 REASON FOR CONSULTATION: Epistaxis. REQUESTING PHYSICIAN: Alexandra Villaseñor M.D. HISTORY OF PRESENT ILLNESS: This is a 72-year-old male who has epistaxis in the nose 1 to 2 weeks ago, which was constant, mild to moderate in intensity. He has not had any episode since. No nasal pain. PAST MEDICAL HISTORY: As noted in the chart by me. MEDICATIONS: As noted in the chart by me. ALLERGIES: NO KNOWN DRUG ALLERGIES. PHYSICAL EXAMINATION: HEAD: Atraumatic, normocephalic. FACE: Good facial movements bilaterally. CONSTITUTIONAL: Well fed, well nourished. COMMUNICATION: Communicates well and appropriately. EXTERNAL NOSE AND EARS: No masses. No lesions. No erythema. No edema. INTERNAL NOSE: Deviated septum. No masses. No lesions. No erythema. No edema. No bleeding. ORAL CAVITY AND OROPHARYNX: No bloody postnasal drip. No masses. No lesions. No erythema. No edema. LIPS AND GUMS: No masses. No lesions. No erythema. No edema. NECK: Supple. THYROID: No thyromegaly. No goiter. LYMPH NODES: No lymphadenopathy of the neck. ASSESSMENT: 1. Epistaxis, resolved. 2. Deviated septum. PLAN: Follow up in the office as an outpatient. Rogerio Ring MD
[2017-08-29] MEDS: Oxymetazoline 0.05% Nasal Spray (30 ml) NS SCH ×2 (05:23→17:15)
--- NOTE | 2017-08-29 05:28 | PN ---
DATE: 08/29/2017 SUBJECTIVE: The patient is seen and examined on the bedside. Looking comfortable, improved a lot, having headache, blood pressure is high. We will start losartan. The patient is using losartan at home, one dose given by the house physician. Kidney function test is improving. GFR up to 40 mL/min. Magazine Worker is on the case. PHYSICAL EXAMINATION: VITAL SIGNS: Temperature 97.7, pulse rate 93, respiratory rate 20, blood pressure 171/93, pulse oximetry 98. HEENT: Head is normocephalic and atraumatic. Eyes, PERRLA. Extraocular muscles are intact. Conjunctivae clear. Nose patent. NECK: Supple. No carotid bruits, JVD, or thyromegaly. CHEST: Bilaterally symmetrical. HEART: S1 and S2 positive. LUNGS: Clear to auscultation. ABDOMEN: Soft. Positive for organomegaly. EXTREMITIES: No edema. No cyanosis. NEUROLOGIC: The patient is awake, alert. Moving all four extremities. No focal deficits. MEDICATIONS: Tylenol, insulin, [place], aspirin, pantoprazole, Risperdal, Crestor, Flomax, vancomycin, vitamin B complex. LABORATORY DATA: White blood cells 7.8, hemoglobin 13.6, hematocrit 38.6, and platelets 222. Sodium 140, potassium 3.9, BUN 21, creatinine 1.7, and glucose 130. ASSESSMENT AND PLAN: Mr. Parker Massey is a 72-year-old male with diabetes mellitus, dyslipidemia, anxiety, hypercholesterolemia, benign prostatic hypertrophy, renal insufficiency improving, has Clostridium difficile toxin colitis, got vancomycin, chronic kidney disease stage 3, renal function much better as per Nephrology. Electrolytes are better. We will continue present treatment. Hypertension, started on losartan. We will repeat labs. We will follow up. Physical therapy, out of bed. Alexandra Villaseñor MD
[2017-08-29] MEDS: (Lantus) Insulin Glargine, Recombinant SC SCH (08:25)
[2017-08-29] MEDS: Multivitamin Vitamin B Complex (Nephro-Vite) Tab PO SCH (08:26)
[2017-08-29] MEDS: Pantoprazole 20 mg EC Tab PO SCH (10:30)
[2017-08-29] MEDS: Clotrimazole/Betamethasone Cream(15 gm) TOP SCH ×2 (10:30→17:15)
[2017-08-29] MEDS: Omega-3-Acid Ethyl Esters 1 GM Cap PO SCH ×2 (10:30→17:14)
[2017-08-29] MEDS: Rosuvastatin Calcium 2.5 mg Tab PO SCH (21:17)
--- NOTE | 2017-08-29 23:26 | CP.PCM.PN ---
Subjective - Date & Time of Evaluation Date of Evaluation: 08/29/17 Time of Evaluation: 23:26 - Subjective Subjective: CHIEF COMPLAINTS TODAY : afebrile Awake and alert. OFFERS NO NEW COMPLAINTS. HIV 1/2 AB -VE ROS. HEENT : N. Resp : No cough, wheezing ,pleuritic CP ,or hemoptysis Cardio : No anginal CP, PND, orthopnea, palpitation GI : No abd.pain, n/v ,diarrhea or GI bleeding . PANEL ASSEMBLER : No headache, vertigo, focal deficit. Musculoskel : No joint swelling , Derm : PATIENT HAS SEBORRHEIC DERMATITIS WITH FACIAL ERYTHEMA BILATERAL NASOLABIAL FOLDS. Psych : Normal affect. Ext : No swelling ,calf pain PE. Pt. is alert awake in no distress. V.S As noted in the chart Head ,ear nose,throat and eyes : Normal. Neck : Supple with normal carotids. Lungs: Clear air entry. Heart : S1 & S2 normal with S4. No murmur. Abd : Soft non tender with normal bowel sounds. Neuro : Moves all ext. with no localized deficit. Ext : No edema with intact pulses.Non tender calves Derm ; SEBORRHEIC DERMATITIS WITH FACIAL ERYTHEMA BILATERAL NASOLABIAL FOLDS. LABS/RADIOLOGY: wbc 7.8 cREATININE 1.7/bun 21 LFTS IMPROVING. Objective - Vital Signs/Intake and Output Vital Signs (last 24 hours): Temp Pulse Resp BP Pulse Ox 97.9 F 86 20 155/82 H 99 08/29/17 15:00 08/29/17 15:00 08/29/17 15:00 08/29/17 15:00 08/29/17 15:00 Intake and Output: 08/29/17 08/30/17 18:59 06:59 Intake Total 500 520 Balance 500 520 - Medications Medications: Current Medications Acetaminophen (Tylenol 325mg Tab) 650 mg PO Q4H PRN PRN Reason: pain fever Betamethasone/Clotrimazole (Lotrisone) 0.5 gm TOP BID [facility] Last Admin: 08/29/17 17:15 Dose: 1 applic Insulin Glargine (Lantus) 20 unit SC ACB [facility] Last Admin: 08/29/17 08:25 Dose: 20 u Losartan Potassium (Cozaar) 100 mg PO DAILY [facility] Last Admin: 08/29/17 10:30 Dose: 100 mg [place]-8-Oqpr Ethyl Esters (Lovaza) 1 gm PO BID [facility] Last Admin: 08/29/17 17:14 Dose: 1 gm Oxymetazoline HCl (Afrin 0.05%) 0 ml NS Q12H [facility] Last Admin: 08/29/17 17:15 Dose: 1 spr Pantoprazole Sodium (Protonix Ec Tab) 20 mg PO DAILY [facility] Last Admin: 08/29/17 10:30 Dose: 20 mg Risperidone (Risperdal Tab) 3 mg PO DAILY [facility] Last Admin: 08/29/17 10:30 Dose: 3 mg Rosuvastatin Calcium (Crestor) 2.5 mg PO HS [facility] Last Admin: 08/29/17 21:17 Dose: 2.5 mg Tamsulosin HCl (Flomax) 0.4 mg PO DAILY [facility] Last Admin: 08/29/17 10:30 Dose: 0.4 mg Vitamin B Complex/Vit C/Folic Acid (Nephro-Dee Dee) 1 tab PO 0800 [facility] Last Admin: 08/29/17 08:26 Dose: 1 tab - Labs Labs: 08/27/17 07:23 08/27/17 07:23 Assessment and Plan - Assessment and Plan (Free Text) Assessment: IMPRESSION: .PSEUDOMEMBRANOUS COLITIS ( +VE STOOL C DIFFICILE TOXIN ) .NEAR SYNCOPY -HYPOTENSION,DEHYDRATION, VASOVAGAL. .RENAL INSUFFICINCY/ON CRF. . DM -2 . HTN . HYPERCHOLESTRLEMIA . RECENT (ENT -SINUS SURGERY -3WKS AGO -ON ABX ) . SEBORRHEIC DERMATITIS PLAN ; ON PO VANCOMYCIN 250MG QID .08/23/17. [id number] IV FLUIDS. LOTRISONE CREAM LOCALLY TID BILATERAL NASOLABIAL FOLDS. ENTERIC/CONTACT PRECAUTIONS.
[2017-08-30 01:30] VITALS: O2SAT 97
--- NOTE | 2017-08-30 03:54 | PN ---
DATE: 08/29/2017 SUBJECTIVE: The patient is a 72-year-old male. The patient was seen and examined at the bedside on 08/29/2017. Looking comfortable. Nasal pain is better. No diarrhea. No chest pain. No shortness of breath. No hematuria or hematochezia. No swelling of the leg. No headache or dizziness. PHYSICAL EXAMINATION: VITAL SIGNS: Temperature 97.9, pulse 86, respiratory rate 20, blood pressure 150/82, pulse oximetry 99. HEENT: Head: Normocephalic, atraumatic. Eyes: PERRLA. Extraocular muscles intact. Conjunctiva clear. Nose is patent. Mucous membrane moist. NECK: Supple. No carotid bruit, JVD, or thyromegaly. CHEST: Bilaterally asymmetrical. HEART: S1, S2 positive. LUNGS: Clear to auscultation. ABDOMEN: Soft. Bowel sounds present. No organomegaly. EXTREMITIES: No edema. No cyanosis. NEUROLOGICAL: The patient is awake, alert. Moving all four extremities. No focal deficit. MEDICATIONS: Tylenol, Lotrisone, Lantus, Cozaar, Lovaza, Afrin, Protonix, risperidone, Crestor, Flomax. LABS: White blood 7.8, hemoglobin 13.6, hematocrit 38.2, platelets 222,000. Sodium 140, potassium 4.9, BUN 21, creatinine 1.7, glucose 130. ASSESSMENT AND PLAN: Mr. Parker Massey is a 72-year-old male with renal insufficiency, improving slowly. Seen by Ear, Nose, and Throat Dr. Rogerio Ring and Infective Disease, epistaxis one to two weeks ago which was constant and mild to moderate in intensity. He has not had any episode since. So ENT ocampo, he is stable. Deviated septum and the patient tend to follow up in Dr. Ring's office as outpatient. [employer] Solder Stripper is on the case. History of depression, diabetes mellitus, dyslipidemia, anxiety, hypercholesterolemia, benign prostatic hypertrophy, history of clostridium difficile toxin with colitis. Got vancomycin. If feeling better, may be discharged to home tomorrow. Repeat labs. We will follow up. Alexandra Villaseñor MD AUDIE
[2017-08-30] MEDS: Oxymetazoline 0.05% Nasal Spray (30 ml) NS SCH ×2 (06:38→06:40)
[2017-08-30 07:44] VITALS: BP 154/90; PULSE 79; TEMP 98
[2017-08-30] MEDS: Multivitamin Vitamin B Complex (Nephro-Vite) Tab PO SCH (08:22)
[2017-08-30] MEDS: (Lantus) Insulin Glargine, Recombinant SC SCH (08:23)
[2017-08-30] MEDS: Pantoprazole 20 mg EC Tab PO SCH (09:22)
[2017-08-30] MEDS: Omega-3-Acid Ethyl Esters 1 GM Cap PO SCH (09:22)
[2017-08-30] MEDS: Clotrimazole/Betamethasone Cream(15 gm) TOP SCH (09:27)
[2017-08-30] MEDS: Vancomycin 125 MG/5 ML SOLN (ORAL/RECTAL) PO SCH ×2 (12:22→14:08)
--- NOTE | 2017-08-30 13:31 | CP.PCM.PN ---
Subjective - Date & Time of Evaluation Date of Evaluation: 08/30/17 Time of Evaluation: 13:31 - Subjective Subjective: CHIEF COMPLAINTS TODAY : afebrile Awake and alert. OFFERS NO NEW COMPLAINTS. denies any further diarrhea ROS. HEENT : N. Resp : No cough, wheezing ,pleuritic CP ,or hemoptysis Cardio : No anginal CP, PND, orthopnea, palpitation GI : No abd.pain, n/v ,diarrhea or GI bleeding . ICE GUARD TESTER : No headache, vertigo, focal deficit. Musculoskel : No joint swelling , Derm : PATIENT HAS SEBORRHEIC DERMATITIS WITH FACIAL ERYTHEMA BILATERAL NASOLABIAL FOLDS. Psych : Normal affect. Ext : No swelling ,calf pain PE. Pt. is alert awake in no distress. V.S As noted in the chart Head ,ear nose,throat and eyes : Normal. Neck : Supple with normal carotids. Lungs: Clear air entry. Heart : S1 & S2 normal with S4. No murmur. Abd : Soft non tender with normal bowel sounds. Neuro : Moves all ext. with no localized deficit. Ext : No edema with intact pulses.Non tender calves Derm ; SEBORRHEIC DERMATITIS WITH FACIAL ERYTHEMA BILATERAL NASOLABIAL FOLDS IMPROVING LABS/RADIOLOGY: wbc 7.8 cREATININE 1.7/bun 21 LFTS IMPROVING. Objective - Vital Signs/Intake and Output Vital Signs (last 24 hours): Temp Pulse Resp BP Pulse Ox 98 F 79 20 154/90 H 97 08/30/17 07:42 08/30/17 07:42 08/30/17 07:42 08/30/17 07:42 08/30/17 07:42 Intake and Output: 08/30/17 08/30/17 06:59 18:59 Intake Total 760 Balance 760 - Medications Medications: Current Medications Acetaminophen (Tylenol 325mg Tab) 650 mg PO Q4H PRN PRN Reason: pain fever Betamethasone/Clotrimazole (Lotrisone) 0.5 gm TOP BID [facility] Last Admin: 08/30/17 09:27 Dose: 1 applic Insulin Glargine (Lantus) 20 unit SC ACB [facility] Last Admin: 08/30/17 08:23 Dose: 20 u Losartan Potassium (Cozaar) 100 mg PO DAILY [facility] Last Admin: 08/30/17 09:22 Dose: 100 mg Pnayn-6-Xprh Ethyl Esters (Lovaza) 1 gm PO BID [facility] Last Admin: 08/30/17 09:22 Dose: 1 gm Oxymetazoline HCl (Afrin 0.05%) 0 ml NS Q12H [facility] Last Admin: 08/30/17 06:40 Dose: Not Given Pantoprazole Sodium (Protonix Ec Tab) 20 mg PO DAILY [facility] Last Admin: 08/30/17 09:22 Dose: 20 mg Risperidone (Risperdal Tab) 3 mg PO DAILY [facility] Last Admin: 08/30/17 09:22 Dose: 3 mg Rosuvastatin Calcium (Crestor) 2.5 mg PO HS [facility] Last Admin: 08/29/17 21:17 Dose: 2.5 mg Tamsulosin HCl (Flomax) 0.4 mg PO DAILY [facility] Last Admin: 08/30/17 09:22 Dose: 0.4 mg Vancomycin HCl (Vancocin (Oral Or Rectal Use)) 250 mg PO QID [facility] PRN Reason: Protocol Last Admin: 08/30/17 12:22 Dose: 250 mg Vitamin B Complex/Vit C/Folic Acid (Nephro-Dee Dee) 1 tab PO 0800 [facility] Last Admin: 08/30/17 08:22 Dose: 1 tab - Labs Labs: 08/27/17 07:23 08/27/17 07:23 Assessment and Plan - Assessment and Plan (Free Text) Assessment: IMPRESSION: .PSEUDOMEMBRANOUS COLITIS ( +VE STOOL C DIFFICILE TOXIN ) .NEAR SYNCOPY -HYPOTENSION,DEHYDRATION, VASOVAGAL. .RENAL INSUFFICINCY/ON CRF. . DM -2 . HTN . HYPERCHOLESTRLEMIA . RECENT (ENT -SINUS SURGERY -3WKS AGO -ON ABX ) . SEBORRHEIC DERMATITIS PLAN ; PATIENT BEING DISCHARGED TODAY ON PO VANCOMYCIN 250MG QID .08/23/17. [id number]. PATIENT TO COMPLETE FULL COURSE. IV FLUIDS. LOTRISONE CREAM LOCALLY TID BILATERAL NASOLABIAL FOLDS. CASE DISCUSSED WITH STAFF.
--- NOTE | 2017-08-30 16:12 | CP.PCM.PN ---
Subjective - Date & Time of Evaluation Date of Evaluation: 08/30/17 Time of Evaluation: 16:12 - Subjective Subjective: alert, awake, no sob or chest pains. Objective - Vital Signs/Intake and Output Vital Signs (last 24 hours): Temp Pulse Resp BP Pulse Ox 98 F 79 20 154/90 H 97 08/30/17 07:42 08/30/17 07:42 08/30/17 07:42 08/30/17 07:42 08/30/17 07:42 Intake and Output: 08/30/17 08/30/17 06:59 18:59 Intake Total 760 Balance 760 - Labs Labs: 08/27/17 07:23 08/27/17 07:23 Assessment and Plan - Assessment and Plan (Free Text) Assessment: patient admitted with diarrhea, c-diff colitis, seen and examined. Alert and examined. No sob or chest pains noted. has no active diarrhea now. Discussed with DR Carbajal and DR Villaseñor, plan to discharge home on total fo 14 days of vancomycin orally. Advised to follow up with PMD in 1 week.Patient verbalized understanding.
--- NOTE | 2017-08-30 17:24 | CP.PCM.PN ---
Subjective - Date & Time of Evaluation Date of Evaluation: 08/30/17 Time of Evaluation: 10:00 - Subjective Subjective: SEEN ON EWNAL F/U FEELS MUCH IMPROVED REASSURED THAT HIS RENAL FUNCTION THAN LIONG TIME BEFORE PT IS BIENG D/C ALL PREVIOUS EMR REVIEWED Objective - Vital Signs/Intake and Output Vital Signs (last 24 hours): Temp Pulse Resp BP Pulse Ox 98 F 79 20 154/90 H 97 08/30/17 07:42 08/30/17 07:42 08/30/17 07:42 08/30/17 07:42 08/30/17 07:42 Intake and Output: 08/30/17 08/30/17 06:59 18:59 Intake Total 760 Balance 760 - Labs Labs: 08/27/17 07:23 08/27/17 07:23 Assessment and Plan - Assessment and Plan (Free Text) Assessment: CKD .. RENAL FUNCTION MUCH BETTER MMP p CLEARED FOR D/C TO C/O CURRENT MEDS WILL F/U AN OUT PT
== END 2017-08-30 14:55 | disposition home or self-care (01) | DRG 372 ==
LOC: C.ER 08:26 → C.9E 12:39 → C.9I 08-23 04:02 → C.3T 08-25 11:10
PROVIDERS: ADMIT Internal Medicine; ATTEND Internal Medicine
DX: A04.72 Enterocolitis due to Clostridium difficile, not specified as recurrent (principal); N18.4 Chronic kidney disease, stage 4 (severe); D63.1 Anemia in chronic kidney disease; E78.5 Hyperlipidemia, unspecified; E86.0 Dehydration; F41.9 Anxiety disorder, unspecified; I12.9 Hypertensive chronic kidney disease with stage 1 through stage 4 chronic kidney disease, or unspecified chronic kidney disease; J32.2 Chronic ethmoidal sinusitis; J34.2 Deviated nasal septum; K21.9 Gastro-esophageal reflux disease without esophagitis; K29.70 Gastritis, unspecified, without bleeding; M17.11 Unilateral primary osteoarthritis, right knee; N40.0 Benign prostatic hyperplasia without lower urinary tract symptoms; R04.0 Epistaxis; Z79.4 Long term (current) use of insulin; E10.65 Type 1 diabetes mellitus with hyperglycemia; E10.649 Type 1 diabetes mellitus with hypoglycemia without coma; E10.22 Type 1 diabetes mellitus with diabetic chronic kidney disease